=== PATIENT | female | born 1950 | race Two or more races ===

== ENCOUNTER 2021-03-02 12:06 | Inpatient (IN) | payer OTHER ==
[2021-03-02 13:53] LABS: BASO % 0.3 % (0-2.0); EOS % 0.3 % (0-4.5); HEMATOCRIT 38.1 % (32.4-45.2); HEMOGLOBIN 12.1 GM/dL (10.7-15.3); LYMPH % 4.5 % (8-40); MCH 27.2 pg (25.7-33.7); MCHC 31.9 g/dl (32.0-36.0); MEAN CELL VOLUME 85.3 fl (80-96); MEAN PLT VOLUME 8.9 fl (7.5-11.1); MONO % 6.9 % (3.8-10.2); PLATELET COUNT 427 10^3/uL (134-434); RBC 4.47 M/mm3 (3.60-5.2); RDW 13.9 % (11.6-15.6); WHITE BLOOD COUNT 15.1 K/mm3 (4.0-10.0)
[2021-03-02 14:09] LABS: CHLORIDE 100 mmol/L (98-107); SODIUM 137 mmol/L (136-145)
[2021-03-02 14:11] LABS: ALBUMIN 1.8 g/dl (3.4-5.0); ANION GAP 5 MMOL/L (8-16); BLOOD UREA NITROGEN 14.9 mg/dL (7-18); CALCIUM 9.2 mg/dL (8.5-10.1); CO2 32 mmol/L (21-32)
[2021-03-02 14:12] LABS: GLUCOSE,RANDOM 153 mg/dL (74-106)
[2021-03-02 14:14] LABS: SGOT/AST 230 U/L (15-37); SGPT/ALT 203 U/L (13-61)
[2021-03-02 14:15] LABS: CREATININE 0.6 mg/dL (0.55-1.3)
[2021-03-02 14:16] LABS: BILIRUBIN,TOTAL 0.6 mg/dL (0.2-1); TOT PROT 6.4 g/dl (6.4-8.2)
[2021-03-02 14:17] LABS: ALK PHOS 130 U/L (45-117)
[2021-03-02 15:43] LABS: ANISOCYTOSIS 1+; MACROCYTOSIS 0; PLATELET ESTIMATE NORMAL; TEAR DROP CELLS 1+
[2021-03-02] MEDS ORDERED: ALBUTEROL SO4 0.083% IH SOL 2.5 MG/3 ML VIAL.NEB. NEB ONE (17:07)
[2021-03-02] MEDS: ALBUTEROL SO4 0.083% IH SOL 2.5 MG/3 ML VIAL.NEB. NEB SCH ×2 (17:16→21:28)
[2021-03-02 19:56] VITALS: BMI 34.2
[2021-03-03 08:55] LABS: BASO % 0.5 % (0-2.0); EOS % 0.5 % (0-4.5); HEMATOCRIT 36.3 % (32.4-45.2); HEMOGLOBIN 11.8 GM/dL (10.7-15.3); LYMPH % 5.6 % (8-40); MCH 27.6 pg (25.7-33.7); MCHC 32.5 g/dl (32.0-36.0); MEAN CELL VOLUME 84.8 fl (80-96); MEAN PLT VOLUME 8.2 fl (7.5-11.1); MONO % 8.6 % (3.8-10.2); NEUT % 84.8 % (42.8-82.8); PLATELET COUNT 423 10^3/uL (134-434); RBC 4.28 M/mm3 (3.60-5.2); RDW 13.9 % (11.6-15.6); WHITE BLOOD COUNT 13.2 K/mm3 (4.0-10.0)
[2021-03-03] MEDS: ENOXAPARIN NA (PORCINE) 40 MG/0.4 ML DISP.SYRIN SQ SCH (08:59)
[2021-03-03] MEDS: ALBUTEROL SO4 0.083% IH SOL 2.5 MG/3 ML VIAL.NEB. NEB SCH ×4 (09:00→19:47)
[2021-03-03 09:14] LABS: CALCIUM 8.7 mg/dL (8.5-10.1)
[2021-03-03 09:15] LABS: ALBUMIN 1.8 g/dl (3.4-5.0); BLOOD UREA NITROGEN 14.2 mg/dL (7-18)
[2021-03-03 09:18] LABS: CREATININE 0.5 mg/dL (0.55-1.3)
[2021-03-03 09:19] LABS: PHOSPHOROUS 3.8 mg/dL (2.5-4.9)
[2021-03-03 09:20] LABS: BILIRUBIN,TOTAL 0.5 mg/dL (0.2-1); TOT PROT 5.7 g/dl (6.4-8.2)
[2021-03-04] MEDS: ALBUTEROL SO4 0.083% IH SOL 2.5 MG/3 ML VIAL.NEB. NEB SCH ×4 (07:29→20:03)
[2021-03-04 08:32] LABS: BASO % 0.5 % (0-2.0); EOS % 0.8 % (0-4.5); HEMATOCRIT 35.7 % (32.4-45.2); HEMOGLOBIN 11.6 GM/dL (10.7-15.3); LYMPH % 6.3 % (8-40); MCH 27.6 pg (25.7-33.7); MCHC 32.7 g/dl (32.0-36.0); MEAN CELL VOLUME 84.4 fl (80-96); MONO % 8.5 % (3.8-10.2); NEUT % 83.9 % (42.8-82.8); PLATELET COUNT 425 10^3/uL (134-434); RBC 4.22 M/mm3 (3.60-5.2); RDW 14.1 % (11.6-15.6)
[2021-03-04 08:47] LABS: ALBUMIN 1.8 g/dl (3.4-5.0); CALCIUM 8.7 mg/dL (8.5-10.1)
[2021-03-04 08:48] LABS: BLOOD UREA NITROGEN 12.8 mg/dL (7-18)
[2021-03-04 08:51] LABS: CREATININE 0.5 mg/dL (0.55-1.3)
[2021-03-04 08:52] LABS: BILIRUBIN,TOTAL 0.4 mg/dL (0.2-1); TOT PROT 5.7 g/dl (6.4-8.2)
[2021-03-04] MEDS: ENOXAPARIN NA (PORCINE) 40 MG/0.4 ML DISP.SYRIN SQ SCH (09:50)
[2021-03-05 07:48] LABS: CALCIUM 8.3 mg/dL (8.5-10.1); HEMATOCRIT 34.4 % (32.4-45.2); HEMOGLOBIN 11.2 GM/dL (10.7-15.3); MCH 27.4 pg (25.7-33.7); MCHC 32.7 g/dl (32.0-36.0); MEAN PLT VOLUME 7.7 fl (7.5-11.1); PLATELET COUNT 429 10^3/uL (134-434); RDW 14.1 % (11.6-15.6); WHITE BLOOD COUNT 15.3 K/mm3 (4.0-10.0)
[2021-03-05 07:49] LABS: BLOOD UREA NITROGEN 10.1 mg/dL (7-18)
[2021-03-05 07:52] LABS: CREATININE 0.4 mg/dL (0.55-1.3)
[2021-03-05] MEDS: ALBUTEROL SO4 0.083% IH SOL 2.5 MG/3 ML VIAL.NEB. NEB SCH ×4 (08:37→19:32)
[2021-03-05] MEDS: ENOXAPARIN NA (PORCINE) 40 MG/0.4 ML DISP.SYRIN SQ SCH (09:33)
[2021-03-06 07:50] LABS: INR 1.45 (0.83-1.09); PROTHROMBIN TIME (PATIENT) 17.6 SEC (9.7-13.0)
[2021-03-06] MEDS: ALBUTEROL SO4 0.083% IH SOL 2.5 MG/3 ML VIAL.NEB. NEB SCH ×4 (07:51→20:16)
[2021-03-06 07:53] LABS: ACTIVATED PTT 32.3 SECONDS (25.2-36.5)
[2021-03-06] MEDS: ENOXAPARIN NA (PORCINE) 40 MG/0.4 ML DISP.SYRIN SQ SCH (10:29)
[2021-03-07] MEDS: ALBUTEROL SO4 0.083% IH SOL 2.5 MG/3 ML VIAL.NEB. NEB SCH ×4 (07:50→19:24)
[2021-03-07] MEDS ORDERED: LEVOTHYROXINE NA 50 MCG TABLET (FP) PO SCH (08:00)
[2021-03-07 08:11] LABS: BASO % 0.5 % (0-2.0); EOS % 0.7 % (0-4.5); HEMATOCRIT 34.5 % (32.4-45.2); HEMOGLOBIN 11.2 GM/dL (10.7-15.3); LYMPH % 5.2 % (8-40); MCH 27.2 pg (25.7-33.7); MCHC 32.4 g/dl (32.0-36.0); MEAN CELL VOLUME 84.1 fl (80-96); MEAN PLT VOLUME 7.6 fl (7.5-11.1); MONO % 7.3 % (3.8-10.2); NEUT % 86.3 % (42.8-82.8); PLATELET COUNT 454 10^3/uL (134-434); RDW 14.4 % (11.6-15.6)
[2021-03-07 08:30] LABS: ALBUMIN 1.6 g/dl (3.4-5.0)
[2021-03-07 08:31] LABS: BLOOD UREA NITROGEN 10.2 mg/dL (7-18); CALCIUM 8.2 mg/dL (8.5-10.1)
[2021-03-07 08:32] LABS: MAGNESIUM 2.1 mg/dL (1.8-2.4)
[2021-03-07 08:34] LABS: CREATININE 0.4 mg/dL (0.55-1.3); PHOSPHOROUS 3.8 mg/dL (2.5-4.9)
[2021-03-07 08:35] LABS: BILIRUBIN,TOTAL 0.5 mg/dL (0.2-1); TOT PROT 5.3 g/dl (6.4-8.2)
[2021-03-07] MEDS ORDERED: FOLIC ACID 1 MG TABLET (FP) PO SCH (10:00)
[2021-03-07] MEDS ORDERED: ETOMIDATE 20 MG/10 ML AMPUL IVPUSH ONE (10:22)
[2021-03-07] MEDS ORDERED: PROPOFOL 20 ML ONE ×2 (10:57→10:58)
[2021-03-07] MEDS ORDERED: SUCCINYLCHOLINE CHLORIDE 200 MG/10 ML SYRINGE ONE (10:58)
[2021-03-07] MEDS ORDERED: ALBUTEROL SO4 0.083% IH SOL 2.5 MG/3 ML VIAL.NEB. NEB ONE ×2 (11:44→11:50)
[2021-03-07] MEDS ORDERED: ONDANSETRON 4 MG/2 ML VIAL IVPUSH ONE (22:08)
[2021-03-08] MEDS ORDERED: LEVOTHYROXINE NA 50 MCG TABLET (FP) PO SCH (07:00)
[2021-03-08] MEDS: ALBUTEROL SO4 0.083% IH SOL 2.5 MG/3 ML VIAL.NEB. NEB SCH ×2 (08:19→12:12)
[2021-03-08 08:58] LABS: BASO % 0.9 % (0-2.0); HEMATOCRIT 36.3 % (32.4-45.2); HEMOGLOBIN 11.5 GM/dL (10.7-15.3); LYMPH % 3.9 % (8-40); MCHC 31.7 g/dl (32.0-36.0); MEAN CELL VOLUME 85.2 fl (80-96); MEAN PLT VOLUME 7.9 fl (7.5-11.1); NEUT % 91.2 % (42.8-82.8); PLATELET COUNT 491 10^3/uL (134-434); RBC 4.26 M/mm3 (3.60-5.2); RDW 14.6 % (11.6-15.6); WHITE BLOOD COUNT 15.5 K/mm3 (4.0-10.0)
[2021-03-08 09:41] LABS: ALBUMIN 1.8 g/dl (3.4-5.0); BLOOD UREA NITROGEN 13.6 mg/dL (7-18)
[2021-03-08 09:46] LABS: CALCIUM 9.2 mg/dL (8.5-10.1)
[2021-03-08 09:47] LABS: BILIRUBIN,TOTAL 0.2 mg/dL (0.2-1)
[2021-03-08 09:48] LABS: CREATININE 0.4 mg/dL (0.55-1.3); MAGNESIUM 2.4 mg/dL (1.8-2.4)
[2021-03-08 09:49] LABS: PHOSPHOROUS 4.1 mg/dL (2.5-4.9)
[2021-03-08] MEDS ORDERED: ENOXAPARIN NA (PORCINE) 40 MG/0.4 ML DISP.SYRIN SQ SCH (10:00)
[2021-03-08] MEDS ORDERED: FOLIC ACID 1 MG TABLET (FP) PO SCH (10:00)
[2021-03-08 11:53] LABS: ANISOCYTOSIS 3+; MACROCYTOSIS 2+; PLATELET ESTIMATE INCREASED
[2021-03-08 15:53] VITALS: BP 101/56; PULSE 80; TEMP 98.5
== END 2021-03-08 18:50 | disposition home health service (06) | DRG 166 ==
LOC: JER 12:06 → JERBED 15:13 → J8W 19:19
PROVIDERS: ADMIT Student in an Organized Health Care Education/Training Program; ATTEND Internal Medicine
PROC: 0BDK8ZX Extraction of Right Lung, Via Natural or Artificial Opening Endoscopic, Diagnostic (ICD-10-PCS; 2021-03-07)
PROC: 0BBC8ZX Excision of Right Upper Lung Lobe, Via Natural or Artificial Opening Endoscopic, Diagnostic (ICD-10-PCS; principal; 2021-03-07 10:30)
DX: C34.11 Malignant neoplasm of upper lobe, right bronchus or lung (principal); J18.9 Pneumonia, unspecified organism; E51.2 Wernicke's encephalopathy; J98.11 Atelectasis; R91.8 Other nonspecific abnormal finding of lung field; R09.02 Hypoxemia; E03.9 Hypothyroidism, unspecified; R74.01 Elevation of levels of liver transaminase levels; I10 Essential (primary) hypertension; E66.9 Obesity, unspecified; Z68.34 Body mass index [BMI] 34.0-34.9, adult; F32.9 Major depressive disorder, single episode, unspecified; F10.11 Alcohol abuse, in remission; Z88.0 Allergy status to penicillin; D72.829 Elevated white blood cell count, unspecified
CPT/HCPCS: 36415; 70553-TC; 71045-TC-FY; 71250-TC; 76705-TC; 78306-TC; 80048; 80053; 83735; 84100; 84132; 84436; 84443; 84484; 85025; 85027; 85384; 85610; 85730; 87040; 87070; 87075; 87102; 87109; 87116; 87205; 87206; 87210; 87899; 88104; 88108; 88305-TC; 93005; 93010; 94010; 94640; 94760; 94761; 97116-GP; 97161-GP; 99285-25; A9503; A9579; C9803; U0003; U0005

== ENCOUNTER 2021-04-18 04:56 | Day surgery (SDC) | payer OTHER ==
[2021-04-17 08:35] VITALS: BMI 35.7
[2021-04-18 07:10] LABS: BASO % 0.9 % (0-2.0); EOS % 4.5 % (0-4.5); HEMATOCRIT 38.4 % (32.4-45.2); HEMOGLOBIN 12.7 GM/dL (10.7-15.3); LYMPH % 26.4 % (8-40); MCH 27.5 pg (25.7-33.7); MCHC 33.1 g/dl (32.0-36.0); MEAN PLT VOLUME 7.9 fl (7.5-11.1); MONO % 9.2 % (3.8-10.2); PLATELET COUNT 256 10^3/uL (134-434); RBC 4.63 M/mm3 (3.60-5.2); RDW 15.7 % (11.6-15.6); WHITE BLOOD COUNT 7.7 K/mm3 (4.0-10.0)
[2021-04-18 07:20] LABS: INR 1.04 (0.83-1.09); PROTHROMBIN TIME (PATIENT) 12.8 SEC (9.7-13.0)
[2021-04-18] MEDS ORDERED: SODIUM CHLORIDE 500 ML IV SCH (07:45)
[2021-04-18] MEDS ORDERED: MIDAZOLAM HCL 2 MG/2 ML SINGLE DOSE VIAL ONE (10:32)
[2021-04-18] MEDS ORDERED: MIDAZOLAM HCL 2 MG/2 ML SINGLE DOSE VIAL IVPUSH ONE (10:35)
[2021-04-18] MEDS ORDERED: CEFAZOLIN 1 GM/D5W 1 GM/50 ML BAG IVPB ONE (11:30)
[2021-04-18 16:02] VITALS: BP 135/73; PULSE 77; TEMP 98.2
== END 2021-04-18 15:10 | disposition home or self-care (01) ==
LOC: JRADIR 04:56
PROVIDERS: ATTEND Internal Medicine Hematology & Oncology
PROC: 02HV33Z Insertion of Infusion Device into Superior Vena Cava, Percutaneous Approach (ICD-10-PCS; principal; 2021-04-18)
DX: C34.90 Malignant neoplasm of unspecified part of unspecified bronchus or lung (principal)
CPT/HCPCS: 36561; C1788; 36415; 85025; 85610

== ENCOUNTER → 2021-04-25 | Day surgery (SDC) | payer OTHER ==
[2021-05-02 09:30] LABS: BASO % 0.7 % (0-2.0); EOS % 1.7 % (0-4.5); HEMATOCRIT 40.3 % (32.4-45.2); HEMOGLOBIN 13.3 GM/dL (10.7-15.3); MCH 27.3 pg (25.7-33.7); MEAN CELL VOLUME 82.7 fl (80-96); MEAN PLT VOLUME 7.8 fl (7.5-11.1); MONO % 8.2 % (3.8-10.2); NEUT % 68.4 % (42.8-82.8); PLATELET COUNT 281 10^3/uL (134-434); RBC 4.88 M/mm3 (3.60-5.2); RDW 16.1 % (11.6-15.6)
[2021-05-02 09:39] LABS: CALCIUM 9.2 mg/dL (8.5-10.1)
[2021-05-02 09:40] LABS: BLOOD UREA NITROGEN 13.8 mg/dL (7-18)
[2021-05-02 09:43] LABS: CREATININE 0.7 mg/dL (0.55-1.3)
[2021-05-02 09:44] LABS: BILIRUBIN,TOTAL 0.8 mg/dL (0.2-1); TOT PROT 7.4 g/dl (6.4-8.2)
== END | disposition home or self-care (01) ==
LOC: JONCCHEMO 07:04
PROVIDERS: ATTEND Internal Medicine Hematology & Oncology
DX: Z53.8 Procedure and treatment not carried out for other reasons (principal)
CPT/HCPCS: 36415; 80053

== ENCOUNTER → 2021-05-02 | Day surgery (SDC) | payer OTHER ==
[~2021-05-02] MED LIST: CARBOPLATIN IVPB ONE; DEXAMETHASONE SODIUM PHOSPHATE 12 MG, DIPHENHYDRAMINE 25 MG in SODIUM CHLORIDE 100 ML IVPB ONE; FAMOTIDINE 20 MG/50 ML IVPB 20 MG/50 ML MG IVPB ONE; PACLITAXEL 78 MG in SODIUM CHLORIDE 250 ML IVPB ONE; PALONOSETRON HCL 0.25 MG/5 ML VIAL IVPUSH ONE; SODIUM CHLORIDE 250 ML IV ONE; SODIUM CHLORIDE IVPB ONE
[2021-05-02 16:41] VITALS: TEMP 97.8
[2021-05-02 16:43] VITALS: BP 118/68; PULSE 75
== END | disposition home or self-care (01) ==
LOC: JONCCHEMO 07:29
PROVIDERS: ATTEND Internal Medicine Hematology & Oncology
PROC: 3E04305 Introduction of Other Antineoplastic into Central Vein, Percutaneous Approach (ICD-10-PCS; principal; 2021-05-02)
PROC: 3E043GC Introduction of Other Therapeutic Substance into Central Vein, Percutaneous Approach (ICD-10-PCS; 2021-05-02)
PROC: 3E0437Z Introduction of Electrolytic and Water Balance Substance into Central Vein, Percutaneous Approach (ICD-10-PCS; 2021-05-02)
DX: Z51.11 Encounter for antineoplastic chemotherapy (principal); C34.91 Malignant neoplasm of unspecified part of right bronchus or lung; J44.9 Chronic obstructive pulmonary disease, unspecified; F03.90 Unspecified dementia, unspecified severity, without behavioral disturbance, psychotic disturbance, mood disturbance, and anxiety; Z87.891 Personal history of nicotine dependence
CPT/HCPCS: 85025; 96361; 96367; 96413; 96417; J2469

== ENCOUNTER 2021-05-09 07:56 | Day surgery (SDC) | payer OTHER ==
[2021-05-09] MEDS ORDERED: PALONOSETRON HCL 0.25 MG/5 ML VIAL IVPUSH ONE (10:15)
[2021-05-09] MEDS ORDERED: SODIUM CHLORIDE 250 ML IV ONE (10:15)
[2021-05-09] MEDS ORDERED: SODIUM CHLORIDE 500 ML IV ONE (10:25)
[2021-05-09] MEDS ORDERED: DEXAMETHASONE SODIUM PHOSPHATE 12 MG, DIPHENHYDRAMINE 25 MG in SODIUM CHLORIDE 100 ML IVPB ONE (10:30)
[2021-05-09] MEDS ORDERED: FAMOTIDINE 20 MG/50 ML IVPB 20 MG/50 ML MG IVPB ONE (10:30)
[2021-05-09] MEDS ORDERED: PACLITAXEL 78 MG in SODIUM CHLORIDE 250 ML IVPB ONE (11:00)
[2021-05-09] MEDS ORDERED: SODIUM CHLORIDE 500 ML IV STA (11:23)
[2021-05-09 11:33] LABS: BASO % 0.5 % (0-2.0); EOS % 2.4 % (0-4.5); HEMATOCRIT 39.2 % (32.4-45.2); HEMOGLOBIN 13.1 GM/dL (10.7-15.3); MCH 27.8 pg (25.7-33.7); MCHC 33.3 g/dl (32.0-36.0); MEAN CELL VOLUME 83.4 fl (80-96); MEAN PLT VOLUME 8.8 fl (7.5-11.1); MONO % 7.9 % (3.8-10.2); NEUT % 75.2 % (42.8-82.8); PLATELET COUNT 243 10^3/uL (134-434); RDW 16.2 % (11.6-15.6); WHITE BLOOD COUNT 6.8 K/mm3 (4.0-10.0)
[2021-05-09 11:57] LABS: BLOOD UREA NITROGEN 17.7 mg/dL (7-18)
[2021-05-09 11:58] LABS: ALBUMIN 2.9 g/dl (3.4-5.0)
[2021-05-09] MEDS ORDERED: SODIUM CHLORIDE IVPB ONE (12:00)
[2021-05-09] MEDS ORDERED: CARBOPLATIN IVPB ONE (12:00)
[2021-05-09 12:01] LABS: CREATININE 0.5 mg/dL (0.55-1.3)
[2021-05-09 12:03] LABS: BILIRUBIN,TOTAL 0.7 mg/dL (0.2-1)
[2021-05-09 15:56] VITALS: TEMP 97.5
[2021-05-09] MEDS ORDERED: PORTA CATH FLUSH 10 ML IVPUSH ONE (15:56)
[2021-05-09 16:02] VITALS: PULSE 79
[2021-05-09 17:30] VITALS: BP 125/84
== END 2021-05-09 17:34 | disposition home or self-care (01) ==
LOC: JONCCHEMO 07:56
PROVIDERS: ATTEND Internal Medicine Hematology & Oncology
PROC: 3E04305 Introduction of Other Antineoplastic into Central Vein, Percutaneous Approach (ICD-10-PCS; principal; 2021-05-09)
PROC: 3E043GC Introduction of Other Therapeutic Substance into Central Vein, Percutaneous Approach (ICD-10-PCS; 2021-05-09)
PROC: 3E0437Z Introduction of Electrolytic and Water Balance Substance into Central Vein, Percutaneous Approach (ICD-10-PCS; 2021-05-09)
DX: Z51.11 Encounter for antineoplastic chemotherapy (principal); C34.91 Malignant neoplasm of unspecified part of right bronchus or lung
CPT/HCPCS: 36415; 80053; 85025; 96361; 96367; 96375; 96413; 96417; J2469

== ENCOUNTER 2021-05-16 07:16 | Day surgery (SDC) | payer OTHER ==
[2021-05-16] MEDS ORDERED: SODIUM CHLORIDE 250 ML IV ONE (09:00)
[2021-05-16] MEDS ORDERED: FAMOTIDINE 20 MG/50 ML IVPB 20 MG/50 ML MG IVPB ONE (10:00)
[2021-05-16] MEDS ORDERED: PALONOSETRON HCL 0.25 MG/5 ML VIAL IVPUSH ONE (10:00)
[2021-05-16] MEDS ORDERED: DEXAMETHASONE SODIUM PHOSPHATE 12 MG, DIPHENHYDRAMINE 25 MG in SODIUM CHLORIDE 100 ML IVPB ONE (10:00)
[2021-05-16] MEDS ORDERED: PACLITAXEL 78 MG in SODIUM CHLORIDE 250 ML IVPB ONE (10:30)
[2021-05-16 11:05] LABS: BASO % 0.7 % (0-2.0); EOS % 2.6 % (0-4.5); HEMATOCRIT 37.3 % (32.4-45.2); HEMOGLOBIN 12.5 GM/dL (10.7-15.3); LYMPH % 18.9 % (8-40); MCH 27.5 pg (25.7-33.7); MCHC 33.4 g/dl (32.0-36.0); MEAN CELL VOLUME 82.3 fl (80-96); MEAN PLT VOLUME 8.2 fl (7.5-11.1); MONO % 11.3 % (3.8-10.2); NEUT % 66.5 % (42.8-82.8); PLATELET COUNT 193 10^3/uL (134-434); RBC 4.53 M/mm3 (3.60-5.2); RDW 15.6 % (11.6-15.6); WHITE BLOOD COUNT 3.1 K/mm3 (4.0-10.0)
[2021-05-16 11:22] LABS: CALCIUM 8.8 mg/dL (8.5-10.1)
[2021-05-16 11:24] LABS: ALBUMIN 2.8 g/dl (3.4-5.0); BLOOD UREA NITROGEN 18.5 mg/dL (7-18)
[2021-05-16 11:27] LABS: CREATININE 0.6 mg/dL (0.55-1.3)
[2021-05-16 11:29] LABS: BILIRUBIN,TOTAL 0.4 mg/dL (0.2-1); TOT PROT 6.8 g/dl (6.4-8.2)
[2021-05-16] MEDS ORDERED: CARBOPLATIN IVPB ONE (11:30)
[2021-05-16] MEDS ORDERED: SODIUM CHLORIDE IVPB ONE (11:30)
[2021-05-16 16:52] VITALS: TEMP 97.7
[2021-05-16 17:02] VITALS: BP 121/75; PULSE 76
[2021-05-16] MEDS ORDERED: PORTA CATH FLUSH 10 ML IVPUSH ONE (17:02)
== END 2021-05-16 16:12 | disposition home or self-care (01) ==
LOC: JONCCHEMO 07:16
PROVIDERS: ATTEND Internal Medicine Hematology & Oncology
DX: Z51.11 Encounter for antineoplastic chemotherapy (principal); C34.91 Malignant neoplasm of unspecified part of right bronchus or lung
CPT/HCPCS: 36415; 80053; 85025; 96361; 96367; 96411; 96413; 96417; J2469

== ENCOUNTER 2021-05-23 08:05 | Day surgery (SDC) | payer OTHER ==
[2021-05-23] MEDS ORDERED: SODIUM CHLORIDE 250 ML IV ONE (09:30)
[2021-05-23] MEDS ORDERED: DEXAMETHASONE SODIUM PHOSPHATE 12 MG, DIPHENHYDRAMINE 25 MG in SODIUM CHLORIDE 100 ML IVPB ONE (10:00)
[2021-05-23] MEDS ORDERED: FAMOTIDINE 20 MG/50 ML IVPB 20 MG/50 ML MG IVPB ONE (10:00)
[2021-05-23] MEDS ORDERED: PALONOSETRON HCL 0.25 MG/5 ML VIAL IVPUSH ONE (10:00)
[2021-05-23 10:03] LABS: BASO % 1.5 % (0-2.0); EOS % 2.2 % (0-4.5); HEMATOCRIT 37.4 % (32.4-45.2); HEMOGLOBIN 12.4 GM/dL (10.7-15.3); LYMPH % 26.5 % (8-40); MCH 27.7 pg (25.7-33.7); MCHC 33.1 g/dl (32.0-36.0); MEAN CELL VOLUME 83.7 fl (80-96); MEAN PLT VOLUME 7.8 fl (7.5-11.1); MONO % 11.6 % (3.8-10.2); NEUT % 58.2 % (42.8-82.8); PLATELET COUNT 165 10^3/uL (134-434); RBC 4.47 M/mm3 (3.60-5.2); RDW 16.3 % (11.6-15.6); WHITE BLOOD COUNT 2.3 K/mm3 (4.0-10.0)
[2021-05-23] MEDS ORDERED: SODIUM CHLORIDE 500 ML IV STA (10:17)
[2021-05-23 10:23] LABS: ALBUMIN 2.8 g/dl (3.4-5.0); BLOOD UREA NITROGEN 10.6 mg/dL (7-18); CALCIUM 8.9 mg/dL (8.5-10.1)
[2021-05-23 10:26] LABS: BILIRUBIN,DIRECT 0.2 mg/dL (0.0-0.2); CREATININE 0.6 mg/dL (0.55-1.3)
[2021-05-23 10:28] LABS: BILIRUBIN,TOTAL 0.4 mg/dL (0.2-1)
[2021-05-23] MEDS ORDERED: PACLITAXEL 78 MG in SODIUM CHLORIDE 250 ML IVPB ONE (10:30)
[2021-05-23] MEDS ORDERED: SODIUM CHLORIDE IVPB ONE (11:30)
[2021-05-23] MEDS ORDERED: CARBOPLATIN IVPB ONE (11:30)
[2021-05-23] MEDS ORDERED: PORTA CATH FLUSH 10 ML IVPUSH ONE (18:32)
[2021-05-23 18:33] VITALS: BP 144/87; PULSE 103; TEMP 98.6
== END 2021-05-23 15:00 | disposition home or self-care (01) ==
LOC: JONCCHEMO 08:05
PROVIDERS: ATTEND Internal Medicine Hematology & Oncology
PROC: 3E04305 Introduction of Other Antineoplastic into Central Vein, Percutaneous Approach (ICD-10-PCS; principal; 2021-05-23)
PROC: 3E043GC Introduction of Other Therapeutic Substance into Central Vein, Percutaneous Approach (ICD-10-PCS; 2021-05-23)
PROC: 3E0437Z Introduction of Electrolytic and Water Balance Substance into Central Vein, Percutaneous Approach (ICD-10-PCS; 2021-05-23)
DX: Z51.11 Encounter for antineoplastic chemotherapy (principal); C34.91 Malignant neoplasm of unspecified part of right bronchus or lung
CPT/HCPCS: 36415; 80048; 80076; 85025; 96361; 96367; 96375; 96413; 96417; J2469

== ENCOUNTER 2021-05-25 12:55 | Day surgery (SDC) | payer OTHER ==
[2021-05-25] MEDS ORDERED: TBO-FILGRASTIM 300 MCG/0.5 ML DISP.SYRINGE SQ ONE (13:15)
[2021-05-25 15:57] VITALS: BP 107/71; PULSE 91; TEMP 98.3
== END 2021-05-25 13:35 | disposition home or self-care (01) ==
LOC: JONCNONCHE 12:55
PROVIDERS: ATTEND Internal Medicine Hematology & Oncology
PROC: 3E033GC Introduction of Other Therapeutic Substance into Peripheral Vein, Percutaneous Approach (ICD-10-PCS; principal; 2021-05-25)
DX: Z76.89 Persons encountering health services in other specified circumstances (principal); C34.91 Malignant neoplasm of unspecified part of right bronchus or lung
CPT/HCPCS: 96372; J1447

== ENCOUNTER 2021-05-30 08:24 | Day surgery (SDC) | payer OTHER ==
[2021-05-30] MEDS ORDERED: SODIUM CHLORIDE 250 ML IV ONE (09:00)
[2021-05-30] MEDS ORDERED: PALONOSETRON HCL 0.25 MG/5 ML VIAL IVPUSH ONE (09:30)
[2021-05-30] MEDS ORDERED: DEXAMETHASONE SODIUM PHOSPHATE 12 MG, DIPHENHYDRAMINE 25 MG in SODIUM CHLORIDE 100 ML IVPB ONE (09:30)
[2021-05-30] MEDS ORDERED: FAMOTIDINE 20 MG/50 ML IVPB 20 MG/50 ML MG IVPB ONE (09:30)
[2021-05-30] MEDS ORDERED: PACLITAXEL 78 MG in SODIUM CHLORIDE 250 ML IVPB ONE (10:00)
[2021-05-30 10:51] LABS: BASO % 1.1 % (0-2.0); EOS % 1.3 % (0-4.5); HEMATOCRIT 37.6 % (32.4-45.2); HEMOGLOBIN 12.6 GM/dL (10.7-15.3); LYMPH % 29.9 % (8-40); MCH 28.2 pg (25.7-33.7); MCHC 33.6 g/dl (32.0-36.0); MEAN CELL VOLUME 83.8 fl (80-96); MEAN PLT VOLUME 7.8 fl (7.5-11.1); MONO % 10.7 % (3.8-10.2); PLATELET COUNT 95 10^3/uL (134-434); RBC 4.48 M/mm3 (3.60-5.2); RDW 16.7 % (11.6-15.6); WHITE BLOOD COUNT 3.3 K/mm3 (4.0-10.0)
[2021-05-30] MEDS ORDERED: CARBOPLATIN IVPB ONE (11:00)
[2021-05-30] MEDS ORDERED: SODIUM CHLORIDE IVPB ONE (11:00)
[2021-05-30] MEDS ORDERED: SODIUM CHLORIDE 500 ML IV STA (11:18)
[2021-05-30 11:23] LABS: ALBUMIN 2.9 g/dl (3.4-5.0); BLOOD UREA NITROGEN 22.4 mg/dL (7-18); CALCIUM 8.5 mg/dL (8.5-10.1)
[2021-05-30 11:26] LABS: CREATININE 0.6 mg/dL (0.55-1.3)
[2021-05-30 11:27] LABS: BILIRUBIN,TOTAL 0.6 mg/dL (0.2-1)
[2021-05-30 16:20] VITALS: TEMP 98.8
[2021-05-30] MEDS ORDERED: PORTA CATH FLUSH 10 ML IVPUSH ONE (16:31)
[2021-05-30 17:55] VITALS: BP 115/73; PULSE 94
== END 2021-05-30 16:00 | disposition home or self-care (01) ==
LOC: JONCCHEMO 08:24
PROVIDERS: ATTEND Internal Medicine Hematology & Oncology
DX: Z51.11 Encounter for antineoplastic chemotherapy (principal); C34.91 Malignant neoplasm of unspecified part of right bronchus or lung
CPT/HCPCS: 36415; 80053; 83615; 85025; 96367; 96375; 96413; 96417; J2469

== ENCOUNTER 2021-06-06 07:34 | Day surgery (SDC) | payer OTHER ==
[2021-06-06] MEDS ORDERED: FAMOTIDINE 20 MG/50 ML IVPB 20 MG/50 ML MG IVPB ONE (10:00)
[2021-06-06] MEDS ORDERED: DIPHENHYDRAMINE IVPB ONE (10:00)
[2021-06-06] MEDS ORDERED: SODIUM CHLORIDE 250 ML IV ONE (10:00)
[2021-06-06] MEDS ORDERED: DEXAMETHASONE IVPB ONE (10:00)
[2021-06-06] MEDS ORDERED: SODIUM CHLORIDE IVPB ONE ×4 (10:00→12:15)
[2021-06-06] MEDS ORDERED: PALONOSETRON HCL 0.25 MG/5 ML VIAL IVPUSH ONE (10:00)
[2021-06-06] MEDS ORDERED: PACLITAXEL IVPB ONE ×2 (10:30→12:15)
[2021-06-06 11:01] LABS: BASO % 0.9 % (0-2.0); EOS % 1.8 % (0-4.5); HEMATOCRIT 37.1 % (32.4-45.2); HEMOGLOBIN 12.3 GM/dL (10.7-15.3); MCH 28.4 pg (25.7-33.7); MCHC 33.3 g/dl (32.0-36.0); MEAN CELL VOLUME 85.5 fl (80-96); MEAN PLT VOLUME 7.9 fl (7.5-11.1); MONO % 6.8 % (3.8-10.2); NEUT % 68.5 % (42.8-82.8); PLATELET COUNT 98 10^3/uL (134-434); RBC 4.34 M/mm3 (3.60-5.2); RDW 17.2 % (11.6-15.6)
[2021-06-06 11:20] LABS: CALCIUM 8.6 mg/dL (8.5-10.1)
[2021-06-06 11:21] LABS: ALBUMIN 2.9 g/dl (3.4-5.0); BLOOD UREA NITROGEN 17.9 mg/dL (7-18); MAGNESIUM 1.9 mg/dL (1.8-2.4)
[2021-06-06 11:24] LABS: CREATININE 0.6 mg/dL (0.55-1.3)
[2021-06-06 11:26] LABS: BILIRUBIN,TOTAL 0.6 mg/dL (0.2-1); TOT PROT 6.7 g/dl (6.4-8.2)
[2021-06-06] MEDS ORDERED: CARBOPLATIN IVPB ONE (11:30)
[2021-06-06] MEDS ORDERED: PACLITAXEL 78 MG in SODIUM CHLORIDE 250 ML IVPB ONE (12:30)
[2021-06-06 16:54] VITALS: TEMP 98.4
[2021-06-06 16:56] VITALS: BP 111/62; PULSE 99
== END 2021-06-06 16:40 | disposition home or self-care (01) ==
LOC: JONCCHEMO 07:34
PROVIDERS: ATTEND Internal Medicine Hematology & Oncology
DX: Z51.11 Encounter for antineoplastic chemotherapy (principal); C34.91 Malignant neoplasm of unspecified part of right bronchus or lung
CPT/HCPCS: 36415; 80053; 83735; 85025; 96361; 96367; 96375; 96413; 96417; J1100; J2469

== ENCOUNTER 2021-06-11 14:00 | Inpatient (IN) | payer OTHER ==
[2021-06-11 14:54] LABS: BASO % 0.7 % (0-2.0); EOS % 1.3 % (0-4.5); HEMATOCRIT 37.2 % (32.4-45.2); HEMOGLOBIN 12.5 GM/dL (10.7-15.3); LYMPH % 23.9 % (8-40); MCH 28.5 pg (25.7-33.7); MCHC 33.6 g/dl (32.0-36.0); MEAN CELL VOLUME 84.6 fl (80-96); MEAN PLT VOLUME 7.5 fl (7.5-11.1); MONO % 16.5 % (3.8-10.2); NEUT % 57.6 % (42.8-82.8); PLATELET COUNT 164 10^3/uL (134-434); RDW 17.9 % (11.6-15.6)
[2021-06-11] MEDS ORDERED: SODIUM CHLORIDE 0.9% 500 ML INFUS.BAG IV ONE (14:59)
[2021-06-11 15:00] LABS: WHITE BLOOD COUNT 1.7 K/mm3 (4.0-10.0)
[2021-06-11 15:01] LABS: INR 1.06 (0.83-1.09); PROTHROMBIN TIME (PATIENT) 13.1 SEC (9.7-13.0)
[2021-06-11 15:03] LABS: ACTIVATED PTT 32.4 SECONDS (25.2-36.5)
[2021-06-11 15:16] LABS: CHLORIDE 100 mmol/L (98-107); SODIUM 137 mmol/L (136-145)
[2021-06-11 15:19] LABS: ANION GAP 6 MMOL/L (8-16); BLOOD UREA NITROGEN 25.3 mg/dL (7-18); CO2 32 mmol/L (21-32); GLUCOSE,RANDOM 124 mg/dL (74-106)
[2021-06-11 15:22] LABS: CREATININE 0.6 mg/dL (0.55-1.3); SGOT/AST 13 U/L (15-37); SGPT/ALT 20 U/L (13-61)
[2021-06-11 15:23] LABS: BILIRUBIN,TOTAL 0.6 mg/dL (0.2-1); TOT PROT 6.9 g/dl (6.4-8.2)
[2021-06-11 15:25] LABS: ALK PHOS 75 U/L (45-117)
[2021-06-11 15:30] LABS: PLATELET ESTIMATE ADEQUATE
[2021-06-11 15:31] LABS: LIPASE 80 U/L (73-393)
[2021-06-11] MEDS ORDERED: ENOXAPARIN NA (PORCINE) 80 MG/0.8 ML DISP.SYRIN SQ ONE (17:00)
[2021-06-11] MEDS ORDERED: ENOXAPARIN NA (PORCINE) 80 MG/0.8 ML DISP.SYRIN SQ SCH (17:00)
[2021-06-11] MEDS ORDERED: ENOXAPARIN NA (PORCINE) 40 MG/0.4 ML DISP.SYRIN SQ ONE (17:03)
[2021-06-11] MEDS ORDERED: ENOXAPARIN NA (PORCINE) 60 MG/0.6 ML DISP.SYRIN SQ ONE (17:15)
[2021-06-11 17:27] LABS: EPI CELLS 15 /uL (0-25.1); HYALINE CASTS 2 /uL (0-3.1); URINE APPEARANCE CLEAR; URINE BACTERIA 349 /uL (0-1359); URINE BILIRUBIN NEGATIVE (NEGATIVE); URINE COLOR YELLOW; URINE GLUCOSE (UA) NEGATIVE (NEGATIVE); URINE KETONE 1+ (NEGATIVE); URINE LEUK ESTERASE TRACE (NEGATIVE); URINE NITRITE NEGATIVE (NEGATIVE); URINE PROTEIN NEGATIVE (NEGATIVE); URINE RBC 10 /uL (0-23.9); URINE WBC 9 /uL (0-25.8)
[2021-06-11 23:38] VITALS: BMI 33.4
[2021-06-12] MEDS: ENOXAPARIN NA (PORCINE) 80 MG/0.8 ML DISP.SYRIN SQ SCH ×2 (05:25→16:55)
[2021-06-12 06:28] LABS: HEMOGLOBIN 11.7 GM/dL (10.7-15.3); MCH 28.7 pg (25.7-33.7); MCHC 33.6 g/dl (32.0-36.0); MEAN CELL VOLUME 85.5 fl (80-96); MEAN PLT VOLUME 8.2 fl (7.5-11.1); PLATELET COUNT 165 10^3/uL (134-434); RBC 4.09 M/mm3 (3.60-5.2); RDW 17.9 % (11.6-15.6)
[2021-06-12 06:39] LABS: WHITE BLOOD COUNT 1.5 K/mm3 (4.0-10.0)
[2021-06-12 06:49] LABS: ALBUMIN 2.5 g/dl (3.4-5.0); BLOOD UREA NITROGEN 18.1 mg/dL (7-18); CALCIUM 8.3 mg/dL (8.5-10.1); MAGNESIUM 1.7 mg/dL (1.8-2.4)
[2021-06-12 06:52] LABS: PHOSPHOROUS 3.4 mg/dL (2.5-4.9)
[2021-06-12 06:53] LABS: CREATININE 0.5 mg/dL (0.55-1.3)
[2021-06-12 06:54] LABS: BILIRUBIN,TOTAL 0.6 mg/dL (0.2-1); TOT PROT 6.3 g/dl (6.4-8.2)
[2021-06-12 11:40] LABS: ANISOCYTOSIS 0; MACROCYTOSIS 0; PLATELET ESTIMATE NORMAL; ROULEAU 1+
[2021-06-13] MEDS: ENOXAPARIN NA (PORCINE) 80 MG/0.8 ML DISP.SYRIN SQ SCH (05:53)
[2021-06-13] MEDS ORDERED: MAGNESIUM SULF 50% (8.12 MEQ/2 ML-1 GM VIAL) IVPB ONE (06:24)
[2021-06-13] MEDS ORDERED: LEVOTHYROXINE NA 50 MCG TABLET (FP) PO SCH (07:00)
[2021-06-13] MEDS ORDERED: ACETAMINOPHEN 325 MG TABLET (FP) PO ONE (09:18)
[2021-06-13] MEDS ORDERED: IBUPROFEN 600 MG TABLET (FP) PO ONE (09:18)
[2021-06-13 09:31] LABS: HEMATOCRIT 33.7 % (32.4-45.2); HEMOGLOBIN 11.4 GM/dL (10.7-15.3); MCHC 33.9 g/dl (32.0-36.0); MEAN CELL VOLUME 85.6 fl (80-96); MEAN PLT VOLUME 8.1 fl (7.5-11.1); PLATELET COUNT 201 10^3/uL (134-434); RBC 3.94 M/mm3 (3.60-5.2); RDW 18.5 % (11.6-15.6)
[2021-06-13] MEDS ORDERED: PT OWN MED DRAWER 7, Y5N ONE ×2 (09:46→10:44)
[2021-06-13 09:51] LABS: WHITE BLOOD COUNT 1.9 K/mm3 (4.0-10.0)
[2021-06-13 09:59] LABS: BLOOD UREA NITROGEN 11.2 mg/dL (7-18); CALCIUM 8.2 mg/dL (8.5-10.1); MAGNESIUM 2.4 mg/dL (1.8-2.4)
[2021-06-13] MEDS ORDERED: CITALOPRAM HYDROBROMIDE 20 MG TABLET PO SCH (10:00)
[2021-06-13] MEDS ORDERED: RIVASTIGMINE 9.5 MG/24 HOURS TRANSDERMAL PATCH TD SCH (10:00)
[2021-06-13 10:03] LABS: CREATININE 0.5 mg/dL (0.55-1.3); PHOSPHOROUS 3.5 mg/dL (2.5-4.9)
[2021-06-13 13:49] VITALS: BP 103/52; PULSE 112; TEMP 98.2
== END 2021-06-13 17:30 | disposition home or self-care (01) | DRG 176 ==
LOC: JER 14:00 → JERBED 16:52 → J4S 21:14
DX: I26.99 Other pulmonary embolism without acute cor pulmonale (principal); C34.90 Malignant neoplasm of unspecified part of unspecified bronchus or lung; E51.2 Wernicke's encephalopathy; J44.9 Chronic obstructive pulmonary disease, unspecified; D70.1 Agranulocytosis secondary to cancer chemotherapy; F03.90 Unspecified dementia, unspecified severity, without behavioral disturbance, psychotic disturbance, mood disturbance, and anxiety; E03.9 Hypothyroidism, unspecified; C54.1 Malignant neoplasm of endometrium; E86.0 Dehydration; E87.8 Other disorders of electrolyte and fluid balance, not elsewhere classified; R00.0 Tachycardia, unspecified; T45.1X5A Adverse effect of antineoplastic and immunosuppressive drugs, initial encounter
CPT/HCPCS: 36415; 71275-TC; 80048; 80053; 81003; 82550; 83690; 83735; 84100; 84484; 85025; 85027; 85610; 85730; 87086; 93005; 93010; 93306-TC; 93970-TC; 96372; 99285-25; C9803; J1447; U0003; U0005

== ENCOUNTER 2021-06-20 08:04 | Day surgery (SDC) | payer OTHER ==
[~2021-06-20 08:04] MED LIST changes: +DEXAMETHASONE IVPB ONE; -DEXAMETHASONE SODIUM PHOSPHATE 12 MG, DIPHENHYDRAMINE 25 MG in SODIUM CHLORIDE 100 ML IVPB ONE; +DIPHENHYDRAMINE IVPB ONE
[2021-06-20] MEDS ORDERED: SODIUM CHLORIDE 250 ML IV ONE (09:00)
[2021-06-20] MEDS ORDERED: DIPHENHYDRAMINE IVPB ONE (09:30)
[2021-06-20] MEDS ORDERED: DEXAMETHASONE IVPB ONE (09:30)
[2021-06-20] MEDS ORDERED: PALONOSETRON HCL 0.25 MG/5 ML VIAL IVPUSH ONE (09:30)
[2021-06-20] MEDS ORDERED: FAMOTIDINE 20 MG/50 ML IVPB 20 MG/50 ML MG IVPB ONE (09:30)
[2021-06-20] MEDS ORDERED: SODIUM CHLORIDE IVPB ONE ×2 (09:30→11:00)
[2021-06-20 09:52] LABS: BASO % 0.4 % (0-2.0); EOS % 0.7 % (0-4.5); HEMATOCRIT 37.3 % (32.4-45.2); HEMOGLOBIN 12.4 GM/dL (10.7-15.3); LYMPH % 8.1 % (8-40); MCH 29.4 pg (25.7-33.7); MCHC 33.3 g/dl (32.0-36.0); MEAN CELL VOLUME 88.3 fl (80-96); MEAN PLT VOLUME 7.3 fl (7.5-11.1); MONO % 13.1 % (3.8-10.2); NEUT % 77.7 % (42.8-82.8); PLATELET COUNT 290 10^3/uL (134-434); RBC 4.22 M/mm3 (3.60-5.2); WHITE BLOOD COUNT 3.9 K/mm3 (4.0-10.0)
[2021-06-20] MEDS ORDERED: PACLITAXEL 78 MG in SODIUM CHLORIDE 250 ML IVPB ONE (10:00)
[2021-06-20 10:20] LABS: ALBUMIN 2.7 g/dl (3.4-5.0); BLOOD UREA NITROGEN 14.8 mg/dL (7-18)
[2021-06-20 10:22] LABS: BILIRUBIN,TOTAL 0.5 mg/dL (0.2-1); TOT PROT 6.7 g/dl (6.4-8.2)
[2021-06-20 10:23] LABS: CREATININE 0.7 mg/dL (0.55-1.3)
[2021-06-20 10:28] LABS: CALCIUM 9.6 mg/dL (8.5-10.1)
[2021-06-20 10:52] LABS: ANISOCYTOSIS 0; MACROCYTOSIS 0; OVALOCYTE 1+; PLATELET ESTIMATE NORMAL
[2021-06-20] MEDS ORDERED: CARBOPLATIN IVPB ONE (11:00)
[2021-06-20] MEDS ORDERED: SODIUM CHLORIDE 500 ML IV STA (11:13)
[2021-06-20] MEDS ORDERED: SODIUM CHLORIDE 750 ML IV STA (11:14)
[2021-06-20 12:20] LABS: MAGNESIUM 2.1 mg/dL (1.8-2.4)
[2021-06-20] MEDS ORDERED: ALBUTEROL SO4 0.083% IH SOL 2.5 MG/3 ML VIAL.NEB. NEB ONE (15:58)
[2021-06-20] MEDS ORDERED: DEXAMETHASONE SOD PHOSPHATE 10 MG/1 ML VIAL IVPB ONE (16:00)
[2021-06-20 18:04] LABS: CHLORIDE 107 mmol/L (98-107); SODIUM 144 mmol/L (136-145)
[2021-06-20 18:08] LABS: ALBUMIN 2.7 g/dl (3.4-5.0); ANION GAP 9 MMOL/L (8-16); BLOOD UREA NITROGEN 15.6 mg/dL (7-18); CO2 27 mmol/L (21-32); GLUCOSE,RANDOM 142 mg/dL (74-106)
[2021-06-20 18:10] LABS: SGPT/ALT 21 U/L (13-61)
[2021-06-20 18:11] LABS: CREATININE 0.7 mg/dL (0.55-1.3); SGOT/AST 19 U/L (15-37)
[2021-06-20 18:12] LABS: BILIRUBIN,TOTAL 0.5 mg/dL (0.2-1)
[2021-06-20 18:13] LABS: ALK PHOS 78 U/L (45-117); TOT PROT 6.6 g/dl (6.4-8.2)
[2021-06-20 19:59] VITALS: BP 102/65; PULSE 101; TEMP 98.4
[2021-06-25 21:10] LABS: CK-MM 100 % (97-100)
== END 2021-06-20 19:30 | disposition home or self-care (01) ==
LOC: JONCCHEMO 08:04
PROVIDERS: ATTEND Internal Medicine Hematology & Oncology
PROC: 3E04305 Introduction of Other Antineoplastic into Central Vein, Percutaneous Approach (ICD-10-PCS; principal; 2021-06-20)
PROC: 3E043GC Introduction of Other Therapeutic Substance into Central Vein, Percutaneous Approach (ICD-10-PCS; 2021-06-20)
PROC: 3E0437Z Introduction of Electrolytic and Water Balance Substance into Central Vein, Percutaneous Approach (ICD-10-PCS; 2021-06-20)
DX: Z51.11 Encounter for antineoplastic chemotherapy (principal); C34.90 Malignant neoplasm of unspecified part of unspecified bronchus or lung; T45.1X5A Adverse effect of antineoplastic and immunosuppressive drugs, initial encounter; L29.8 Other pruritus; R07.89 Other chest pain; R05.8 Other specified cough; Y92.238 Other place in hospital as the place of occurrence of the external cause
CPT/HCPCS: 36415; 71045-TC-FY; 80053; 82550; 82552; 83735; 84484; 85025; 93005; 93010; 96361; 96365; 96375; 96409; J1100; J2469

== ENCOUNTER 2021-06-22 10:01 | Day surgery (SDC) | payer OTHER ==
[2021-06-22 10:57] LABS: HEMATOCRIT 35.1 % (32.4-45.2); HEMOGLOBIN 11.9 GM/dL (10.7-15.3); MCH 29.5 pg (25.7-33.7); MCHC 33.8 g/dl (32.0-36.0); MEAN CELL VOLUME 87.4 fl (80-96); MEAN PLT VOLUME 7.2 fl (7.5-11.1); PLATELET COUNT 262 10^3/uL (134-434); RBC 4.02 M/mm3 (3.60-5.2); RDW 21.4 % (11.6-15.6); WHITE BLOOD COUNT 4.4 K/mm3 (4.0-10.0)
[2021-06-22 11:20] LABS: CALCIUM 9.1 mg/dL (8.5-10.1)
[2021-06-22 11:21] LABS: ALBUMIN 2.8 g/dl (3.4-5.0); BLOOD UREA NITROGEN 16.9 mg/dL (7-18); MAGNESIUM 1.8 mg/dL (1.8-2.4)
[2021-06-22 11:24] LABS: CREATININE 0.7 mg/dL (0.55-1.3)
[2021-06-22 11:25] LABS: BILIRUBIN,TOTAL 0.4 mg/dL (0.2-1); TOT PROT 6.6 g/dl (6.4-8.2)
[2021-06-22] MEDS ORDERED: SODIUM CHLORIDE 250 ML IV ONE (13:00)
[2021-06-22] MEDS ORDERED: ONDANSETRON IVPB ONE (13:15)
[2021-06-22] MEDS ORDERED: DIPHENHYDRAMINE IVPB ONE (13:15)
[2021-06-22] MEDS ORDERED: FAMOTIDINE 20 MG/50 ML IVPB 20 MG/50 ML MG IVPB ONE (13:15)
[2021-06-22] MEDS ORDERED: [UNRECOGNIZED DRUG - OTHER] IVPB ONE (13:15)
[2021-06-22] MEDS ORDERED: DEXAMETHASONE IVPB ONE (13:15)
[2021-06-22] MEDS ORDERED: SODIUM CHLORIDE IVPB ONE (13:45)
[2021-06-22] MEDS ORDERED: CARBOPLATIN IVPB ONE (13:45)
[2021-06-22 16:48] VITALS: TEMP 97.6
[2021-06-22 16:58] VITALS: BP 126/65; PULSE 75
== END 2021-06-22 16:30 | disposition home or self-care (01) ==
LOC: JONCCHEMO 10:01 → EDSTATUS 06-27 09:43 → JLAB 06-27 10:06 → EDSTATUS 06-27 10:33
PROVIDERS: ATTEND Internal Medicine Hematology & Oncology
CPT/HCPCS: 36415; 80053; 83735; 85027; 96367; 96413; J1100; J2405

== ENCOUNTER 2021-08-01 08:18 | Day surgery (SDC) | payer OTHER ==
[2021-08-01 10:20] LABS: BASO % 0.7 % (0-2.0); EOS % 1.6 % (0-4.5); HEMOGLOBIN 13.5 GM/dL (10.7-15.3); MCH 30.9 pg (25.7-33.7); MCHC 33.7 g/dl (32.0-36.0); MEAN CELL VOLUME 91.5 fl (80-96); MEAN PLT VOLUME 7.8 fl (7.5-11.1); MONO % 9.3 % (3.8-10.2); NEUT % 76.4 % (42.8-82.8); PLATELET COUNT 194 10^3/uL (134-434); RBC 4.37 M/mm3 (3.60-5.2); RDW 17.9 % (11.6-15.6); WHITE BLOOD COUNT 6.2 K/mm3 (4.0-10.0)
[2021-08-01] MEDS ORDERED: SODIUM CHLORIDE 250 ML IV ONE (10:30)
[2021-08-01 10:41] LABS: ALBUMIN 3.1 g/dl (3.4-5.0)
[2021-08-01 10:44] LABS: CREATININE 0.7 mg/dL (0.55-1.3)
[2021-08-01 10:45] LABS: BILIRUBIN,TOTAL 0.7 mg/dL (0.2-1)
[2021-08-01] MEDS ORDERED: SODIUM CHLORIDE IV ONE (11:00)
[2021-08-01] MEDS ORDERED: DURVALUMAB IV ONE (11:00)
[2021-08-01 16:19] VITALS: TEMP 97.7
[2021-08-01 16:21] VITALS: BP 106/71; PULSE 77
== END 2021-08-01 16:41 | disposition home or self-care (01) ==
LOC: JONCCHEMO 08:18
PROVIDERS: ATTEND Internal Medicine Hematology & Oncology
DX: Z51.11 Encounter for antineoplastic chemotherapy (principal); C34.90 Malignant neoplasm of unspecified part of unspecified bronchus or lung
CPT/HCPCS: 36415; 80053; 83735; 84439; 84443; 85025; 86704; 86705; 86708; 87517; 96361; 96413; J9173

== ENCOUNTER 2021-08-16 18:21 | Emergency (ER) | payer OTHER ==
[2021-08-16 18:42] VITALS: BP 91/61; PULSE 100; TEMP 97.8; BMI 32.7
== END 2021-08-16 20:44 | disposition home or self-care (01) ==
LOC: JER 18:21
DX: R05.1 Acute cough (principal); C34.90 Malignant neoplasm of unspecified part of unspecified bronchus or lung; Z11.52 Encounter for screening for COVID-19
CPT/HCPCS: 99283-25; C9803; U0003; U0005

== ENCOUNTER → 2021-08-16 | Day surgery (SDC) | payer OTHER ==
[~2021-08-16] MED LIST changes: -CARBOPLATIN IVPB ONE; -DEXAMETHASONE IVPB ONE; -DIPHENHYDRAMINE IVPB ONE; +DURVALUMAB IV ONE; -FAMOTIDINE 20 MG/50 ML IVPB 20 MG/50 ML MG IVPB ONE; -PACLITAXEL 78 MG in SODIUM CHLORIDE 250 ML IVPB ONE; -PALONOSETRON HCL 0.25 MG/5 ML VIAL IVPUSH ONE; +SODIUM CHLORIDE IV ONE; -SODIUM CHLORIDE IVPB ONE
== END | disposition home or self-care (01) ==
LOC: JONCCHEMO 07:39
PROVIDERS: ATTEND Internal Medicine Hematology & Oncology
DX: Z53.8 Procedure and treatment not carried out for other reasons (principal)
CPT/HCPCS: 71046-TC-FY; 96365

== ENCOUNTER 2021-09-19 08:10 | Day surgery (SDC) | payer OTHER ==
[2021-09-19] MEDS ORDERED: SODIUM CHLORIDE 250 ML IV ONE (14:45)
[2021-09-19] MEDS ORDERED: SODIUM CHLORIDE IV ONE ×2 (15:30→17:00)
[2021-09-19] MEDS ORDERED: DURVALUMAB IV ONE ×2 (15:30→17:00)
[2021-09-19 16:05] LABS: BASO % 0.5 % (0-2.0); EOS % 1.1 % (0-4.5); HEMATOCRIT 38.1 % (32.4-45.2); HEMOGLOBIN 12.1 GM/dL (10.7-15.3); LYMPH % 8.1 % (8-40); MCH 28.6 pg (25.7-33.7); MCHC 31.8 g/dl (32.0-36.0); MEAN CELL VOLUME 89.7 fl (80-96); MEAN PLT VOLUME 7.9 fl (7.5-11.1); MONO % 9.4 % (3.8-10.2); NEUT % 80.9 % (42.8-82.8); PLATELET COUNT 295 10^3/uL (134-434); RBC 4.24 M/mm3 (3.60-5.2); RDW 14.3 % (11.6-15.6); WHITE BLOOD COUNT 6.9 K/mm3 (4.0-10.0)
[2021-09-19 16:31] LABS: ALBUMIN 2.9 g/dl (3.4-5.0); BLOOD UREA NITROGEN 16.8 mg/dL (7-18); CALCIUM 9.3 mg/dL (8.5-10.1)
[2021-09-19 16:34] LABS: CREATININE 0.6 mg/dL (0.55-1.3)
[2021-09-19 16:36] LABS: BILIRUBIN,TOTAL 0.4 mg/dL (0.2-1); TOT PROT 6.6 g/dl (6.4-8.2)
[2021-09-19] MEDS ORDERED: DEXAMETHASONE SOD PHOSPHATE 10 MG/1 ML VIAL ONE (18:10)
[2021-09-19 18:24] VITALS: BP 121/79; PULSE 120; TEMP 98.7
[2021-09-19] MEDS ORDERED: DEXAMETHASONE SOD PHOSPHATE/PF 10 MG/ML SDV IVPB ONE (18:34)
== END 2021-09-19 18:57 | disposition home or self-care (01) ==
LOC: JONCCHEMO 08:10
PROVIDERS: ATTEND Internal Medicine Hematology & Oncology
DX: Z51.11 Encounter for antineoplastic chemotherapy (principal); C34.90 Malignant neoplasm of unspecified part of unspecified bronchus or lung; T45.1X5A Adverse effect of antineoplastic and immunosuppressive drugs, initial encounter; L29.8 Other pruritus
CPT/HCPCS: 36415; 80053; 85025; 96413; J1100; J9173

== ENCOUNTER 2021-09-19 19:02 | Emergency (ER) | payer OTHER ==
[2021-09-19 19:24] VITALS: TEMP 97.8; BMI 38.3
[2021-09-19 21:58] VITALS: PULSE 102
[2021-09-19] MEDS ORDERED: APIXABAN 5 MG TABLET PO SCH (22:00)
[2021-09-19] MEDS: APIXABAN 5 MG TABLET PO SCH ×2 (22:00)
[2021-09-19 22:07] VITALS: BP 110/75
== END 2021-09-19 22:39 | disposition home or self-care (01) ==
LOC: JER 19:02
PROC: 3E033NZ Introduction of Analgesics, Hypnotics, Sedatives into Peripheral Vein, Percutaneous Approach (ICD-10-PCS; principal; 2021-09-19)
PROC: 3E033GC Introduction of Other Therapeutic Substance into Peripheral Vein, Percutaneous Approach (ICD-10-PCS; 2021-09-19)
PROC: 3E033GC Introduction of Other Therapeutic Substance into Peripheral Vein, Percutaneous Approach (ICD-10-PCS; 2021-09-19)
PROC: 3E0337Z Introduction of Electrolytic and Water Balance Substance into Peripheral Vein, Percutaneous Approach (ICD-10-PCS; 2021-09-19)
DX: C34.90 Malignant neoplasm of unspecified part of unspecified bronchus or lung (principal); T78.40XA Allergy, unspecified, initial encounter; R21 Rash and other nonspecific skin eruption; R22.33 Localized swelling, mass and lump, upper limb, bilateral
CPT/HCPCS: 99283-25

== ENCOUNTER 2021-10-03 08:02 | Day surgery (SDC) | payer OTHER ==
[2021-10-03 09:55] LABS: BASO % 0.5 % (0-2.0); EOS % 1.2 % (0-4.5); HEMATOCRIT 39.3 % (32.4-45.2); HEMOGLOBIN 12.8 GM/dL (10.7-15.3); LYMPH % 10.7 % (8-40); MCH 28.5 pg (25.7-33.7); MCHC 32.5 g/dl (32.0-36.0); MEAN CELL VOLUME 87.7 fl (80-96); MEAN PLT VOLUME 7.6 fl (7.5-11.1); MONO % 9.6 % (3.8-10.2); PLATELET COUNT 230 10^3/uL (134-434); RBC 4.49 M/mm3 (3.60-5.2); RDW 14.4 % (11.6-15.6); WHITE BLOOD COUNT 6.7 K/mm3 (4.0-10.0)
[2021-10-03] MEDS ORDERED: SODIUM CHLORIDE 250 ML IV STA (10:04)
[2021-10-03] MEDS ORDERED: DEXAMETHASONE SOD PHOSPHATE 20 MG/5 ML VIAL IVPB ONE (10:04)
[2021-10-03 10:18] LABS: CALCIUM 9.2 mg/dL (8.5-10.1)
[2021-10-03 10:19] LABS: BLOOD UREA NITROGEN 18.9 mg/dL (7-18)
[2021-10-03 10:22] LABS: CREATININE 0.7 mg/dL (0.55-1.3)
[2021-10-03 10:24] LABS: TOT PROT 6.9 g/dl (6.4-8.2)
[2021-10-03] MEDS ORDERED: SODIUM CHLORIDE 250 ML IV ONE (10:30)
[2021-10-03 10:33] LABS: BILIRUBIN,TOTAL 0.5 mg/dL (0.2-1)
[2021-10-03] MEDS ORDERED: SODIUM CHLORIDE IV ONE (11:00)
[2021-10-03] MEDS ORDERED: DURVALUMAB IV ONE (11:00)
[2021-10-03] MEDS ORDERED: DEXAMETHASONE SODIUM PHOSPHATE 20 MG, DIPHENHYDRAMINE 25 MG in SODIUM CHLORIDE 100 ML IVPB ONE (12:00)
[2021-10-03 16:57] VITALS: TEMP 97.6
[2021-10-03 17:05] VITALS: BP 92/58; PULSE 87
== END 2021-10-03 16:00 | disposition home or self-care (01) ==
LOC: JONCCHEMO 08:02
PROVIDERS: ATTEND Internal Medicine Hematology & Oncology
DX: Z51.11 Encounter for antineoplastic chemotherapy (principal); C34.90 Malignant neoplasm of unspecified part of unspecified bronchus or lung
CPT/HCPCS: 36415; 80053; 82533; 84439; 84443; 85025; 87040; 96361; 96367; 96413; J9173

== ENCOUNTER 2021-10-17 08:59 | Day surgery (SDC) | payer OTHER ==
[2021-10-17] MEDS ORDERED: SODIUM CHLORIDE 250 ML IV ONE (09:30)
[2021-10-17 09:52] LABS: BASO % 0.4 % (0-2.0); EOS % 2.2 % (0-4.5); HEMATOCRIT 39.3 % (32.4-45.2); HEMOGLOBIN 12.9 GM/dL (10.7-15.3); LYMPH % 6.7 % (8-40); MCH 28.5 pg (25.7-33.7); MCHC 32.8 g/dl (32.0-36.0); MEAN CELL VOLUME 86.7 fl (80-96); MEAN PLT VOLUME 7.3 fl (7.5-11.1); MONO % 8.2 % (3.8-10.2); NEUT % 82.5 % (42.8-82.8); PLATELET COUNT 334 10^3/uL (134-434); RBC 4.54 M/mm3 (3.60-5.2); RDW 14.6 % (11.6-15.6); WHITE BLOOD COUNT 6.7 K/mm3 (4.0-10.0)
[2021-10-17] MEDS ORDERED: DEXAMETHASONE SODIUM PHOSPHATE IVPB ONE (10:00)
[2021-10-17] MEDS ORDERED: DIPHENHYDRAMINE IVPB ONE (10:00)
[2021-10-17] MEDS ORDERED: SODIUM CHLORIDE IVPB ONE (10:00)
[2021-10-17] MEDS ORDERED: SODIUM CHLORIDE IV ONE (10:30)
[2021-10-17] MEDS ORDERED: DURVALUMAB IV ONE (10:30)
[2021-10-17 13:28] LABS: ALBUMIN 2.9 g/dl (3.4-5.0); BILIRUBIN,TOTAL 0.2 mg/dL (0.2-1); CALCIUM 9.2 mg/dL (8.5-10.1); CREATININE 0.4 mg/dL (0.55-1.3); TOT PROT 6.6 g/dl (6.4-8.2)
[2021-10-17] MEDS ORDERED: PORTA CATH FLUSH 10 ML IVPUSH ONE (16:22)
[2021-10-17 16:23] VITALS: BP 99/53; PULSE 104; TEMP 98.3
== END 2021-10-17 16:57 | disposition home or self-care (01) ==
LOC: JONCCHEMO 08:59
PROVIDERS: ATTEND Internal Medicine Hematology & Oncology
DX: Z51.11 Encounter for antineoplastic chemotherapy (principal); C34.90 Malignant neoplasm of unspecified part of unspecified bronchus or lung
CPT/HCPCS: 36415; 80053; 84439; 84443; 85025; 87040; 96361; 96367; 96413; J9173

== ENCOUNTER 2021-11-14 07:43 | Day surgery (SDC) | payer OTHER ==
[2021-11-14 09:58] LABS: BASO % 0.7 % (0-2.0); EOS % 1.7 % (0-4.5); HEMATOCRIT 38.8 % (32.4-45.2); HEMOGLOBIN 12.9 GM/dL (10.7-15.3); LYMPH % 9.5 % (8-40); MCH 27.9 pg (25.7-33.7); MCHC 33.2 g/dl (32.0-36.0); MEAN PLT VOLUME 7.6 fl (7.5-11.1); MONO % 9.9 % (3.8-10.2); NEUT % 78.2 % (42.8-82.8); PLATELET COUNT 298 10^3/uL (134-434); RBC 4.61 M/mm3 (3.60-5.2); RDW 14.9 % (11.6-15.6); WHITE BLOOD COUNT 6.5 K/mm3 (4.0-10.0)
[2021-11-14] MEDS ORDERED: SODIUM CHLORIDE 250 ML IV ONE (10:00)
[2021-11-14 10:17] LABS: CALCIUM 9.4 mg/dL (8.5-10.1)
[2021-11-14] MEDS ORDERED: ACETAMINOPHEN 325 MG TABLET (FP) PO ONE (10:17)
[2021-11-14 10:18] LABS: BLOOD UREA NITROGEN 19.5 mg/dL (7-18)
[2021-11-14 10:21] LABS: CREATININE 0.6 mg/dL (0.55-1.3)
[2021-11-14 10:22] LABS: BILIRUBIN,TOTAL 0.4 mg/dL (0.2-1)
[2021-11-14 10:23] LABS: TOT PROT 6.8 g/dl (6.4-8.2)
[2021-11-14] MEDS ORDERED: SODIUM CHLORIDE IVPB ONE (10:30)
[2021-11-14] MEDS ORDERED: DEXAMETHASONE SODIUM PHOSPHATE IVPB ONE (10:30)
[2021-11-14] MEDS ORDERED: DIPHENHYDRAMINE IVPB ONE (10:30)
[2021-11-14] MEDS ORDERED: DURVALUMAB 1,500 MG in SODIUM CHLORIDE 100 ML IV ONE (11:00)
[2021-11-14 18:06] VITALS: TEMP 97.4
[2021-11-14 18:11] VITALS: BP 93/66; PULSE 98
[2021-11-14] MEDS ORDERED: PORTA CATH FLUSH 10 ML IVPUSH ONE (18:11)
== END 2021-11-14 14:30 | disposition home or self-care (01) ==
LOC: JONCCHEMO 07:43
PROVIDERS: ATTEND Internal Medicine Hematology & Oncology
DX: Z51.11 Encounter for antineoplastic chemotherapy (principal); C34.90 Malignant neoplasm of unspecified part of unspecified bronchus or lung
CPT/HCPCS: 36415; 80053; 84439; 84443; 85025; 96367; 96413; J9173

== ENCOUNTER 2021-12-12 07:43 | Day surgery (SDC) | payer OTHER ==
[2021-12-12] MEDS ORDERED: SODIUM CHLORIDE 250 ML IV ONE (09:00)
[2021-12-12] MEDS ORDERED: DEXAMETHASONE SODIUM PHOSPHATE 20 MG, DIPHENHYDRAMINE 25 MG in SODIUM CHLORIDE 100 ML IVPB ONE (09:30)
[2021-12-12] MEDS ORDERED: DURVALUMAB 1,500 MG in SODIUM CHLORIDE 100 ML IV ONE (10:00)
[2021-12-12 11:08] LABS: BASO % 0.5 % (0-2.0); EOS % 2.5 % (0-4.5); HEMATOCRIT 37.8 % (32.4-45.2); HEMOGLOBIN 12.2 GM/dL (10.7-15.3); LYMPH % 10.3 % (8-40); MCH 26.9 pg (25.7-33.7); MCHC 32.2 g/dl (32.0-36.0); MEAN CELL VOLUME 83.3 fl (80-96); MEAN PLT VOLUME 7.4 fl (7.5-11.1); MONO % 10.1 % (3.8-10.2); NEUT % 76.6 % (42.8-82.8); PLATELET COUNT 348 10^3/uL (134-434); RBC 4.54 M/mm3 (3.60-5.2); RDW 14.6 % (11.6-15.6); WHITE BLOOD COUNT 5.6 K/mm3 (4.0-10.0)
[2021-12-12 11:38] LABS: ALBUMIN 2.7 g/dl (3.4-5.0); CALCIUM 9.3 mg/dL (8.5-10.1)
[2021-12-12 11:39] LABS: BLOOD UREA NITROGEN 20.3 mg/dL (7-18)
[2021-12-12 11:42] LABS: CREATININE 0.6 mg/dL (0.55-1.3)
[2021-12-12 11:43] LABS: BILIRUBIN,TOTAL 0.3 mg/dL (0.2-1); TOT PROT 6.6 g/dl (6.4-8.2)
[2021-12-12 15:36] VITALS: BP 110/75; PULSE 107
[2021-12-12 17:50] VITALS: TEMP 97
== END 2021-12-12 15:00 | disposition home or self-care (01) ==
LOC: JONCCHEMO 07:43
PROVIDERS: ATTEND Internal Medicine Hematology & Oncology
PROC: 02PY03Z Removal of Infusion Device from Great Vessel, Open Approach (ICD-10-PCS; principal; 2021-12-12)
DX: T82.898A Other specified complication of vascular prosthetic devices, implants and grafts, initial encounter (principal); C34.90 Malignant neoplasm of unspecified part of unspecified bronchus or lung
CPT/HCPCS: 36415; 36590; 80053; 84439; 84443; 85025; 87070; 87102; 87116; 87186; 87206; 87210

== ENCOUNTER 2022-01-23 12:11 | Inpatient (IN) | payer OTHER ==
[2022-01-23] MEDS ORDERED: SODIUM CHLORIDE 0.9% 500 ML INFUS.BAG IV ONE (12:35)
[2022-01-23 15:02] LABS: HEMATOCRIT 39.7 % (32.4-45.2); HEMOGLOBIN 12.7 GM/dL (10.7-15.3); MCH 26.6 pg (25.7-33.7); MEAN CELL VOLUME 83.1 fl (80-96); MEAN PLT VOLUME 7.6 fl (7.5-11.1); PLATELET COUNT 327 10^3/uL (134-434); RBC 4.78 M/mm3 (3.60-5.2); RDW 14.9 % (11.6-15.6); WHITE BLOOD COUNT 21.8 K/mm3 (4.0-10.0)
[2022-01-23 15:14] LABS: VENOUS O2 SATURATION 32.9 % (70-80); VENOUS PH 7.24 (7.310-7.410)
[2022-01-23 15:15] LABS: VENOUS BASE EXCESS 0.7 mmol/L (-2-2)
[2022-01-23 15:16] LABS: VENOUS PCO2 73.5 mmHg (38-52)
[2022-01-23 15:26] LABS: INR 1.21 (0.83-1.09)
[2022-01-23 15:28] LABS: ACTIVATED PTT 33.5 SECONDS (25.2-36.5)
[2022-01-23 15:31] LABS: ANISOCYTOSIS 0; MACROCYTOSIS 0
[2022-01-23 15:34] LABS: CALCIUM 9.3 mg/dL (8.5-10.1)
[2022-01-23 15:35] LABS: BLOOD UREA NITROGEN 11.2 mg/dL (7-18)
[2022-01-23 15:38] LABS: CREATININE 0.8 mg/dL (0.55-1.3); PHOSPHOROUS 4.2 mg/dL (2.5-4.9)
[2022-01-23 15:39] LABS: BILIRUBIN,TOTAL 1.2 mg/dL (0.2-1)
[2022-01-23 15:53] LABS: LACTIC ACID 3.1 mmol/L (0.4-2.0)
[2022-01-23] MEDS ORDERED: CEFEPIME HCL/D5W 1 GM/50 ML BAG IVPB ONE (15:55)
[2022-01-23] MEDS ORDERED: VANCOMYCIN 1,000 MG in DEXTROSE 5%-WATER - 250 ML IVPB ONE (15:55)
[2022-01-23] MEDS ORDERED: CEFEPIME 1 GM/100 ML BAG IVPB ONE (17:19)
[2022-01-23] MEDS ORDERED: VANCOMYCIN 1 GRAM (PRE-DOCKED) 1,000 MG/250 ML BAG IVPB ONE (17:19)
[2022-01-23 18:36] LABS: VENOUS BASE EXCESS 6.1 mmol/L (-2-2); VENOUS O2 SATURATION 61.5 % (70-80); VENOUS PCO2 56.5 mmHg (38-52)
[2022-01-23 18:50] VITALS: BMI 28.6
[2022-01-23 19:09] LABS: LACTIC ACID 2.2 mmol/L (0.4-2.0)
[2022-01-23] MEDS ORDERED: PNEUMOC 20-VAL CONJ-DIP CRM/PF 0.5 ML SYRINGE IM ONE (20:00)
[2022-01-23] MEDS: DEXAMETHASONE SOD PHOSPHATE 10 MG/1 ML VIAL IVPB SCH (20:21)
[2022-01-23] MEDS ORDERED: ALBUTEROL SO4 HFA INHALER IH PRN (20:54)
[2022-01-23] MEDS ORDERED: ACETAMINOPHEN 325 MG TABLET (FP) PO PRN (20:54)
[2022-01-23] MEDS ORDERED: SODIUM CHLORIDE 1,000 ML IV SCH (21:00)
[2022-01-23] MEDS: APIXABAN 5 MG TABLET PO SCH (21:57)
[2022-01-23] MEDS: FAMOTIDINE 20 MG TABLET PO SCH (21:57)
[2022-01-23] MEDS: INSULIN SLIDING SCALE (NOVOLOG) 1 VIAL SQ SCH (22:09)
[2022-01-24] MEDS ORDERED: MEROPENEM 1 GM VIAL (RESTRICTED TO ID) IVPB ONE ×2 (01:27→08:45)
[2022-01-24] MEDS ORDERED: DEXTROSE 5%-WATER 100 ML IVPB ONE ×2 (01:27→08:46)
[2022-01-24] MEDS: MEROPENEM 1 GM in DEXTROSE 5%-WATER 100 ML IVPB SCH ×3 (01:28→13:19)
[2022-01-24] MEDS: INSULIN SLIDING SCALE (NOVOLOG) 1 VIAL SQ SCH ×4 (06:38→23:11)
[2022-01-24 07:33] LABS: HEMATOCRIT 32.4 % (32.4-45.2); HEMOGLOBIN 10.7 GM/dL (10.7-15.3); MCH 26.8 pg (25.7-33.7); MEAN CELL VOLUME 81.4 fl (80-96); MEAN PLT VOLUME 7.5 fl (7.5-11.1); PLATELET COUNT 275 10^3/uL (134-434); RBC 3.98 M/mm3 (3.60-5.2); RDW 14.7 % (11.6-15.6); WHITE BLOOD COUNT 18.2 K/mm3 (4.0-10.0)
[2022-01-24 07:59] LABS: CALCIUM 8.9 mg/dL (8.5-10.1)
[2022-01-24 08:00] LABS: BLOOD UREA NITROGEN 9.9 mg/dL (7-18); MAGNESIUM 2.1 mg/dL (1.8-2.4); PHOSPHOROUS 4.1 mg/dL (2.5-4.9)
[2022-01-24 08:02] LABS: TOT PROT 5.8 g/dl (6.4-8.2)
[2022-01-24 08:03] LABS: CREATININE 0.5 mg/dL (0.55-1.3)
[2022-01-24 08:05] LABS: BILIRUBIN,TOTAL 0.5 mg/dL (0.2-1)
[2022-01-24 08:15] LABS: ALBUMIN 2.4 g/dl (3.4-5.0)
[2022-01-24] MEDS ORDERED: SODIUM CHLORIDE 0.9% 500 ML INFUS.BAG IV ONE (08:28)
[2022-01-24] MEDS: DEXAMETHASONE SOD PHOSPHATE 10 MG/1 ML VIAL IVPB SCH (09:15)
[2022-01-24] MEDS: FAMOTIDINE 20 MG TABLET PO SCH ×2 (09:17→22:55)
[2022-01-24] MEDS: LEVOTHYROXINE NA 50 MCG TABLET (FP) PO SCH (09:17)
[2022-01-24] MEDS: APIXABAN 5 MG TABLET PO SCH ×2 (09:17→22:54)
[2022-01-24 09:22] LABS: ANISOCYTOSIS 2+; MACROCYTOSIS 0; PLATELET ESTIMATE NORMAL
[2022-01-24] MEDS ORDERED: VANCOMYCIN 1 GM/200 ML PREMIX BAG IVPB SCH ×2 (10:00)
[2022-01-24] MEDS ORDERED: REMDESIVIR 200 MG in SODIUM CHLORIDE 250 ML IVPB ONE (13:00)
[2022-01-24] MEDS ORDERED: DEXTROSE 5%-WATER - 50 ML IVPB ONE (17:23)
[2022-01-24] MEDS ORDERED: AZTREONAM 1 GM VIAL (RESTRICTED TO ID) ONE (17:23)
[2022-01-24] MEDS: AZTREONAM 1 GM in DEXTROSE 5%-WATER - 50 ML IVPB SCH (17:35)
[2022-01-24] MEDS: VANCOMYCIN/WATER FOR INJ (PEG) 1,000 MG/200 ML BAG IVPB SCH (22:55)
[2022-01-25] MEDS ORDERED: DEXTROSE 5%-WATER - 50 ML IVPB ONE ×3 (01:11→16:27)
[2022-01-25] MEDS ORDERED: AZTREONAM 1 GM VIAL (RESTRICTED TO ID) ONE ×3 (01:11→16:27)
[2022-01-25] MEDS: AZTREONAM 1 GM in DEXTROSE 5%-WATER - 50 ML IVPB SCH ×3 (01:21→17:05)
[2022-01-25] MEDS: INSULIN SLIDING SCALE (NOVOLOG) 1 VIAL SQ SCH ×4 (06:42→21:59)
[2022-01-25 07:14] LABS: HEMATOCRIT 31.6 % (32.4-45.2); RBC 3.82 M/mm3 (3.60-5.2); WHITE BLOOD COUNT 17.7 K/mm3 (4.0-10.0)
[2022-01-25 07:15] LABS: MCH 26.2 pg (25.7-33.7); MCHC 31.7 g/dl (32.0-36.0); MEAN CELL VOLUME 82.7 fl (80-96); MEAN PLT VOLUME 7.8 fl (7.5-11.1); PLATELET COUNT 288 10^3/uL (134-434); RDW 15.2 % (11.6-15.6)
[2022-01-25 07:34] LABS: CALCIUM 9.1 mg/dL (8.5-10.1)
[2022-01-25 07:35] LABS: ALBUMIN 2.2 g/dl (3.4-5.0); BLOOD UREA NITROGEN 13.7 mg/dL (7-18)
[2022-01-25 07:38] LABS: CREATININE 0.5 mg/dL (0.55-1.3)
[2022-01-25 07:39] LABS: TOT PROT 5.5 g/dl (6.4-8.2)
[2022-01-25 07:40] LABS: BILIRUBIN,TOTAL 0.3 mg/dL (0.2-1)
[2022-01-25 08:23] LABS: ANISOCYTOSIS 3+; MACROCYTOSIS 0
[2022-01-25] MEDS: CITALOPRAM HYDROBROMIDE 20 MG TABLET PO SCH (09:00)
[2022-01-25] MEDS: VANCOMYCIN/WATER FOR INJ (PEG) 1,000 MG/200 ML BAG IVPB SCH ×2 (09:00→21:45)
[2022-01-25] MEDS: LEVOTHYROXINE NA 50 MCG TABLET (FP) PO SCH (09:01)
[2022-01-25] MEDS: RIVASTIGMINE 9.5 MG/24 HOURS TRANSDERMAL PATCH TD SCH (09:01)
[2022-01-25] MEDS: DEXAMETHASONE SOD PHOSPHATE 10 MG/1 ML VIAL IVPB SCH (09:01)
[2022-01-25] MEDS: APIXABAN 5 MG TABLET PO SCH ×2 (09:01→21:50)
[2022-01-25] MEDS: FAMOTIDINE 20 MG TABLET PO SCH (09:01)
[2022-01-25] MEDS: REMDESIVIR 100 MG in SODIUM CHLORIDE 250 ML IVPB SCH (13:00)
[2022-01-25] MEDS: PANTOPRAZOLE 40 MG TABLET PO SCH (13:16)
[2022-01-25] MEDS: VANCOMYCIN 250 MG/5 ML ORAL SOLUTION PO SCH ×2 (14:30→17:38)
[2022-01-25] MEDS ORDERED: MELATONIN 5 MG TABLETS PO ONE (22:17)
[2022-01-26] MEDS: VANCOMYCIN 250 MG/5 ML ORAL SOLUTION PO SCH ×4 (00:30→18:12)
[2022-01-26] MEDS ORDERED: AZTREONAM 1 GM VIAL (RESTRICTED TO ID) ONE ×3 (01:59→18:13)
[2022-01-26] MEDS ORDERED: DEXTROSE 5%-WATER - 50 ML IVPB ONE ×3 (01:59→18:13)
[2022-01-26] MEDS: AZTREONAM 1 GM in DEXTROSE 5%-WATER - 50 ML IVPB SCH ×3 (02:04→18:17)
[2022-01-26] MEDS: INSULIN SLIDING SCALE (NOVOLOG) 1 VIAL SQ SCH ×4 (06:45→22:45)
[2022-01-26 06:51] LABS: HEMATOCRIT 29.6 % (32.4-45.2); HEMOGLOBIN 9.6 GM/dL (10.7-15.3); MCH 26.4 pg (25.7-33.7); MCHC 32.4 g/dl (32.0-36.0); MEAN CELL VOLUME 81.5 fl (80-96); MEAN PLT VOLUME 7.8 fl (7.5-11.1); PLATELET COUNT 260 10^3/uL (134-434); RBC 3.63 M/mm3 (3.60-5.2); RDW 15.1 % (11.6-15.6); WHITE BLOOD COUNT 14.2 K/mm3 (4.0-10.0)
[2022-01-26 07:21] LABS: BLOOD UREA NITROGEN 17.8 mg/dL (7-18); CALCIUM 8.5 mg/dL (8.5-10.1)
[2022-01-26 07:25] LABS: CREATININE 0.5 mg/dL (0.55-1.3)
[2022-01-26] MEDS: CITALOPRAM HYDROBROMIDE 20 MG TABLET PO SCH (09:33)
[2022-01-26] MEDS: VANCOMYCIN/WATER FOR INJ (PEG) 1,000 MG/200 ML BAG IVPB SCH ×2 (09:34→21:38)
[2022-01-26] MEDS: DEXAMETHASONE SOD PHOSPHATE 10 MG/1 ML VIAL IVPB SCH (09:34)
[2022-01-26] MEDS: RIVASTIGMINE 9.5 MG/24 HOURS TRANSDERMAL PATCH TD SCH (09:34)
[2022-01-26] MEDS: LEVOTHYROXINE NA 50 MCG TABLET (FP) PO SCH (09:34)
[2022-01-26] MEDS: PANTOPRAZOLE 40 MG TABLET PO SCH (09:34)
[2022-01-26] MEDS: APIXABAN 5 MG TABLET PO SCH ×2 (09:34→21:38)
[2022-01-26] MEDS: REMDESIVIR 100 MG in SODIUM CHLORIDE 250 ML IVPB SCH (14:33)
[2022-01-27] MEDS: VANCOMYCIN 250 MG/5 ML ORAL SOLUTION PO SCH ×4 (00:29→17:38)
[2022-01-27] MEDS ORDERED: AZTREONAM 1 GM VIAL (RESTRICTED TO ID) ONE ×3 (01:17→16:58)
[2022-01-27] MEDS ORDERED: DEXTROSE 5%-WATER - 50 ML IVPB ONE ×3 (01:17→16:59)
[2022-01-27] MEDS: AZTREONAM 1 GM in DEXTROSE 5%-WATER - 50 ML IVPB SCH ×3 (01:23→17:38)
[2022-01-27] MEDS: INSULIN SLIDING SCALE (NOVOLOG) 1 VIAL SQ SCH ×4 (06:38→22:00)
[2022-01-27] MEDS ORDERED: SODIUM CHLORIDE 250 ML IV STA (06:43)
[2022-01-27] MEDS: DEXAMETHASONE SOD PHOSPHATE 10 MG/1 ML VIAL IVPB SCH (09:41)
[2022-01-27] MEDS: PANTOPRAZOLE 40 MG TABLET PO SCH (09:42)
[2022-01-27] MEDS: CITALOPRAM HYDROBROMIDE 20 MG TABLET PO SCH (09:42)
[2022-01-27] MEDS: RIVASTIGMINE 9.5 MG/24 HOURS TRANSDERMAL PATCH TD SCH (09:42)
[2022-01-27] MEDS: VANCOMYCIN/WATER FOR INJ (PEG) 1,000 MG/200 ML BAG IVPB SCH ×2 (09:42→11:27)
[2022-01-27] MEDS: APIXABAN 5 MG TABLET PO SCH ×2 (09:42→22:01)
[2022-01-27] MEDS: LEVOTHYROXINE NA 50 MCG TABLET (FP) PO SCH (09:42)
[2022-01-27] MEDS: REMDESIVIR 100 MG in SODIUM CHLORIDE 250 ML IVPB SCH (16:15)
[2022-01-28] MEDS: VANCOMYCIN 250 MG/5 ML ORAL SOLUTION PO SCH ×5 (00:31→23:15)
[2022-01-28] MEDS ORDERED: AZTREONAM 1 GM VIAL (RESTRICTED TO ID) ONE ×3 (01:27→16:47)
[2022-01-28] MEDS ORDERED: DEXTROSE 5%-WATER - 50 ML IVPB ONE ×3 (01:28→16:47)
[2022-01-28] MEDS: AZTREONAM 1 GM in DEXTROSE 5%-WATER - 50 ML IVPB SCH ×3 (01:30→17:15)
[2022-01-28] MEDS: INSULIN SLIDING SCALE (NOVOLOG) 1 VIAL SQ SCH ×4 (06:41→23:18)
[2022-01-28 07:12] LABS: HEMATOCRIT 38.9 % (32.4-45.2); HEMOGLOBIN 12.8 GM/dL (10.7-15.3); MCH 26.9 pg (25.7-33.7); MEAN CELL VOLUME 81.5 fl (80-96); PLATELET COUNT 325 10^3/uL (134-434); RBC 4.78 M/mm3 (3.60-5.2); RDW 15.1 % (11.6-15.6); WHITE BLOOD COUNT 6.8 K/mm3 (4.0-10.0)
[2022-01-28 07:24] LABS: BLOOD UREA NITROGEN 10.2 mg/dL (7-18); CALCIUM 8.7 mg/dL (8.5-10.1)
[2022-01-28 07:25] LABS: ALBUMIN 2.5 g/dl (3.4-5.0)
[2022-01-28 07:28] LABS: CREATININE 0.5 mg/dL (0.55-1.3)
[2022-01-28 07:29] LABS: BILIRUBIN,TOTAL 0.3 mg/dL (0.2-1); TOT PROT 5.8 g/dl (6.4-8.2)
[2022-01-28] MEDS: RIVASTIGMINE 9.5 MG/24 HOURS TRANSDERMAL PATCH TD SCH (10:18)
[2022-01-28] MEDS: DEXAMETHASONE SOD PHOSPHATE 10 MG/1 ML VIAL IVPB SCH (10:19)
[2022-01-28] MEDS: CITALOPRAM HYDROBROMIDE 20 MG TABLET PO SCH (10:19)
[2022-01-28] MEDS: LEVOTHYROXINE NA 50 MCG TABLET (FP) PO SCH (10:19)
[2022-01-28] MEDS: APIXABAN 5 MG TABLET PO SCH ×2 (10:19→22:15)
[2022-01-28] MEDS: VANCOMYCIN/WATER FOR INJ (PEG) 1,000 MG/200 ML BAG IVPB SCH (10:20)
[2022-01-28] MEDS: PANTOPRAZOLE 40 MG TABLET PO SCH (10:20)
[2022-01-28 11:42] LABS: ANISOCYTOSIS 2+; MACROCYTOSIS 0; OVALOCYTE 2+; TEAR DROP CELLS 1+
[2022-01-28] MEDS: REMDESIVIR 100 MG in SODIUM CHLORIDE 250 ML IVPB SCH (13:05)
[2022-01-29] MEDS ORDERED: AZTREONAM 1 GM VIAL (RESTRICTED TO ID) ONE ×3 (03:11→16:26)
[2022-01-29] MEDS ORDERED: DEXTROSE 5%-WATER - 50 ML IVPB ONE ×3 (03:12→16:26)
[2022-01-29] MEDS: AZTREONAM 1 GM in DEXTROSE 5%-WATER - 50 ML IVPB SCH ×3 (03:22→17:42)
[2022-01-29] MEDS: INSULIN SLIDING SCALE (NOVOLOG) 1 VIAL SQ SCH ×4 (06:11→22:36)
[2022-01-29] MEDS: VANCOMYCIN 250 MG/5 ML ORAL SOLUTION PO SCH ×3 (06:11→17:42)
[2022-01-29 07:45] LABS: HEMATOCRIT 33.3 % (32.4-45.2); HEMOGLOBIN 11.2 GM/dL (10.7-15.3); LYMPH % 5.7 % (8-40); MCH 27.2 pg (25.7-33.7); MCHC 33.5 g/dl (32.0-36.0); MEAN CELL VOLUME 81.1 fl (80-96); MEAN PLT VOLUME 7.9 fl (7.5-11.1); MONO % 6.6 % (3.8-10.2); NEUT % 87.7 % (42.8-82.8); PLATELET COUNT 285 10^3/uL (134-434); RBC 4.11 M/mm3 (3.60-5.2); RDW 15.1 % (11.6-15.6); WHITE BLOOD COUNT 9.5 K/mm3 (4.0-10.0)
[2022-01-29 08:08] LABS: CALCIUM 8.5 mg/dL (8.5-10.1)
[2022-01-29 08:09] LABS: ALBUMIN 2.1 g/dl (3.4-5.0); BLOOD UREA NITROGEN 14.3 mg/dL (7-18)
[2022-01-29 08:12] LABS: CREATININE 0.4 mg/dL (0.55-1.3)
[2022-01-29 08:14] LABS: BILIRUBIN,TOTAL 0.2 mg/dL (0.2-1)
[2022-01-29] MEDS: DEXAMETHASONE SOD PHOSPHATE 10 MG/1 ML VIAL IVPB SCH (10:08)
[2022-01-29] MEDS: LEVOTHYROXINE NA 50 MCG TABLET (FP) PO SCH (10:08)
[2022-01-29] MEDS: APIXABAN 5 MG TABLET PO SCH ×2 (10:08→22:24)
[2022-01-29] MEDS: PANTOPRAZOLE 40 MG TABLET PO SCH (10:08)
[2022-01-29] MEDS: VANCOMYCIN/WATER FOR INJ (PEG) 1,000 MG/200 ML BAG IVPB SCH (10:09)
[2022-01-29] MEDS: RIVASTIGMINE 9.5 MG/24 HOURS TRANSDERMAL PATCH TD SCH (10:28)
[2022-01-29] MEDS: CITALOPRAM HYDROBROMIDE 20 MG TABLET PO SCH (10:29)
[2022-01-29] MEDS ORDERED: POTASSIUM CHLORIDE TABS 20 MEQ TABLET.ER (FP) PO ONE (12:00)
[2022-01-30] MEDS: VANCOMYCIN 250 MG/5 ML ORAL SOLUTION PO SCH ×5 (00:21→23:20)
[2022-01-30] MEDS: AZTREONAM 1 GM in DEXTROSE 5%-WATER - 50 ML IVPB SCH ×2 (02:31→09:00)
[2022-01-30] MEDS ORDERED: AZTREONAM 1 GM VIAL (RESTRICTED TO ID) ONE ×2 (03:23→08:31)
[2022-01-30] MEDS ORDERED: DEXTROSE 5%-WATER - 50 ML IVPB ONE ×2 (03:24→08:31)
[2022-01-30] MEDS: INSULIN SLIDING SCALE (NOVOLOG) 1 VIAL SQ SCH ×4 (06:04→22:41)
[2022-01-30] MEDS: LEVOTHYROXINE NA 50 MCG TABLET (FP) PO SCH (08:59)
[2022-01-30] MEDS: PANTOPRAZOLE 40 MG TABLET PO SCH (08:59)
[2022-01-30] MEDS: RIVASTIGMINE 9.5 MG/24 HOURS TRANSDERMAL PATCH TD SCH (08:59)
[2022-01-30] MEDS: APIXABAN 5 MG TABLET PO SCH ×2 (09:00→21:49)
[2022-01-30] MEDS: DEXAMETHASONE SOD PHOSPHATE 10 MG/1 ML VIAL IVPB SCH (09:00)
[2022-01-30] MEDS: CITALOPRAM HYDROBROMIDE 20 MG TABLET PO SCH (09:00)
[2022-01-30] MEDS: VANCOMYCIN/WATER FOR INJ (PEG) 1,000 MG/200 ML BAG IVPB SCH (09:01)
[2022-01-31] MEDS: VANCOMYCIN 250 MG/5 ML ORAL SOLUTION PO SCH ×3 (06:24→17:49)
[2022-01-31] MEDS: INSULIN SLIDING SCALE (NOVOLOG) 1 VIAL SQ SCH ×4 (06:42→21:15)
[2022-01-31] MEDS: CITALOPRAM HYDROBROMIDE 20 MG TABLET PO SCH (10:03)
[2022-01-31] MEDS: RIVASTIGMINE 9.5 MG/24 HOURS TRANSDERMAL PATCH TD SCH (10:04)
[2022-01-31] MEDS: APIXABAN 5 MG TABLET PO SCH ×2 (10:04→21:15)
[2022-01-31] MEDS: DEXAMETHASONE SOD PHOSPHATE 10 MG/1 ML VIAL IVPB SCH (10:04)
[2022-01-31] MEDS: PANTOPRAZOLE 40 MG TABLET PO SCH (10:07)
[2022-01-31] MEDS: LEVOTHYROXINE NA 50 MCG TABLET (FP) PO SCH (10:07)
[2022-02-01] MEDS: VANCOMYCIN 250 MG/5 ML ORAL SOLUTION PO SCH ×3 (00:08→12:52)
[2022-02-01] MEDS: INSULIN SLIDING SCALE (NOVOLOG) 1 VIAL SQ SCH ×3 (06:05→16:30)
[2022-02-01 07:54] LABS: CALCIUM 8.2 mg/dL (8.5-10.1)
[2022-02-01 07:55] LABS: ALBUMIN 2.1 g/dl (3.4-5.0); BLOOD UREA NITROGEN 17.2 mg/dL (7-18)
[2022-02-01 07:58] LABS: CREATININE 0.4 mg/dL (0.55-1.3)
[2022-02-01 07:59] LABS: BILIRUBIN,TOTAL 0.3 mg/dL (0.2-1)
[2022-02-01] MEDS: CITALOPRAM HYDROBROMIDE 20 MG TABLET PO SCH (10:36)
[2022-02-01] MEDS: DEXAMETHASONE SOD PHOSPHATE 10 MG/1 ML VIAL IVPB SCH (10:36)
[2022-02-01] MEDS: PANTOPRAZOLE 40 MG TABLET PO SCH (10:37)
[2022-02-01] MEDS: LEVOTHYROXINE NA 50 MCG TABLET (FP) PO SCH (10:37)
[2022-02-01] MEDS: APIXABAN 5 MG TABLET PO SCH (10:37)
[2022-02-01] MEDS ORDERED: POTASSIUM CHLORIDE TABS 20 MEQ TABLET.ER (FP) PO ONE (12:23)
[2022-02-01] MEDS: RIVASTIGMINE 9.5 MG/24 HOURS TRANSDERMAL PATCH TD SCH (12:52)
[2022-02-01 18:16] VITALS: BP 117/64; PULSE 60; TEMP 98.4
== END 2022-02-01 18:00 | DRG 871 ==
LOC: JER 12:11 → JERBED 16:25 → J2W 18:11
PROVIDERS: ADMIT Internal Medicine
PROC: 3E0333Z Introduction of Anti-inflammatory into Peripheral Vein, Percutaneous Approach (ICD-10-PCS; 2022-01-23)
PROC: XW033E5 Introduction of Remdesivir Anti-infective into Peripheral Vein, Percutaneous Approach, New Technology Group 5 (ICD-10-PCS; principal; 2022-01-24)
DX: A41.89 Other specified sepsis (principal); U07.1 COVID-19; J12.82 Pneumonia due to coronavirus disease 2019; J18.9 Pneumonia, unspecified organism; J96.11 Chronic respiratory failure with hypoxia; E87.2 Acidosis; J98.11 Atelectasis; J44.0 Chronic obstructive pulmonary disease with (acute) lower respiratory infection; J44.1 Chronic obstructive pulmonary disease with (acute) exacerbation; A04.72 Enterocolitis due to Clostridium difficile, not specified as recurrent; J90 Pleural effusion, not elsewhere classified; C34.90 Malignant neoplasm of unspecified part of unspecified bronchus or lung; J94.2 Hemothorax; F03.90 Unspecified dementia, unspecified severity, without behavioral disturbance, psychotic disturbance, mood disturbance, and anxiety; E03.9 Hypothyroidism, unspecified; E11.9 Type 2 diabetes mellitus without complications; F41.8 Other specified anxiety disorders; H81.10 Benign paroxysmal vertigo, unspecified ear; D72.829 Elevated white blood cell count, unspecified; D64.9 Anemia, unspecified; E87.6 Hypokalemia; Z88.0 Allergy status to penicillin; Z86.711 Personal history of pulmonary embolism
CPT/HCPCS: 0241U-QW; 36415; 71045-TC-FY; 71275-TC; 80048; 80053; 82728; 82803; 82962; 83605; 83615; 83735; 84100; 84439; 84443; 84484; 85025; 85027; 85379; 85610; 85730; 86140; 87040; 87045; 87046; 87324; 87449; 93005; 93010; 97116-GP; 97161-GP; 99285-25; C1887; C9399; G0480; J1100; Q9967

== ENCOUNTER 2025-02-18 15:30 | Emergency (ER) | payer OTHER ==
[2025-02-18 15:55] VITALS: TEMP 98; BMI 37.0
[2025-02-18] MEDS: LACTATED RINGERS SOLUTION 1000 ML INFUS.BAG IV ONE (16:44)
[2025-02-18 16:48] LABS: ABSOLUTE IMMATURE GRANULOCYTES 0.01 x10^3/uL (0.0-0.031); BASOPHILS # 0.03 x10^3/uL (0.01-0.08); EOSINOPHIL % 1.2 % (0.7-5.8); EOSINOPHILS # 0.07 x10^3/uL (0.04-0.36); HEMOGLOBIN 15.4 g/dL (11.2-15.7); MCHC 31.4 g/dl (32.2-35.5); MEAN CELL VOLUME 91.2 fl (79.4-94.8); MEAN PLT VOLUME 9.8 fl (9.4-12.3); MONOCYTE # 0.49 x10^3/uL (0.24-0.86); MONOCYTE % 8.2 % (4.7-12.5); PLATELET COUNT 224 x10^3/uL (182-369); RDW 13.2 % (12.4-16.6)
[2025-02-18 16:54] LABS: VENOUS O2 SATURATION 42.1 % (70-80); VENOUS PCO2 54.5 mmHg (38-52); VENOUS PH 7.345 (7.310-7.410)
[2025-02-18 17:07] LABS: ALBUMIN 3.3 g/dl (3.4-5.0); CALCIUM 9.7 mg/dL (8.5-10.1)
[2025-02-18 17:08] LABS: ACTIVATED PTT 34.6 SECONDS (25.2-36.5); BLOOD UREA NITROGEN 18.2 mg/dL (7-18); INR 1.07 (0.83-1.09); PROTHROMBIN TIME (PATIENT) 11.7 SEC (9.7-13.0)
[2025-02-18 17:11] LABS: CREATININE 0.9 mg/dL (0.55-1.3)
[2025-02-18 17:12] LABS: BILIRUBIN,TOTAL 0.6 mg/dL (0.2-1); TOT PROT 6.9 g/dl (6.4-8.2)
[2025-02-18 17:16] LABS: N-TERMINAL BNP 127.8 pg/ml (5-450)
[2025-02-18 19:31] VITALS: RESP 18
[2025-02-18 22:30] VITALS: BP 122/78; PULSE 99
== END 2025-02-18 22:30 | disposition home or self-care (01) ==
LOC: JER 15:30
DX: R00.0 Tachycardia, unspecified (principal); R06.02 Shortness of breath
CPT/HCPCS: 36415; 71045-TC-FY; 71275-TC; 80053; 82803; 83735; 83880; 84484; 85025; 85610; 85730; 86850; 86900; 86901; 93005; 93010; 99285-25; Q9967